=== PATIENT | male | born 1990 | race Caucasian/White ===

== ENCOUNTER 2019-02-07 05:23 | Inpatient (IN) | payer OTHER ==
[~2019-02-07] VITALS: Ht 165.1 cm; Wt 68.0 kg
[~2019-02-07 05:23] MED LIST: ALPRAZOLAM1 MG PO; AZATHIOPRINE50 MG PO; AZITHROMYCIN 2250 MG PO; BACTRIM DS TAB1 EACH PO; PREDNISONE 10 M10 MG PO; REMICADE 1100 MG/VIA; XANAX 0.5 MG0.5 M1 PO
[2019-02-07 05:29] VITALS: BP 139/62
[2019-02-07 05:47] LABS: ABSOLUTE LYMPHOCYTES 0.9 thou/uL (0.8-5.3); ABSOLUTE MONOCYTES 0.7 thou/uL (0.0-1.2); ABSOLUTE NEUTROPHILS 9.6 thou/uL (1.6-8.1); BASOPHILS 0.2 %; EOSINOPHILS 0.3 %; HEMATOCRIT 31.3 % (42.0-52.0); HEMOGLOBIN 9.5 gm/dL (14.0-18.0); MCH 19.6 pg (26.0-34.0); MCHC 30.3 g/dL (28.0-37.0); MCV 64.8 fL (80.0-100.0); MONOCYTES 6.6 %; NUCLEATED RBCS 0 /100WBC; PLATELET COUNT* 330 thou/uL (150-400); POLYS 84.9 %; RBC 4.83 mil/uL (4.50-6.00); RDW-CV 19.2 % (10.5-14.5); WBC 11.3 thou/uL (4.0-11.0)
[2019-02-07 05:54] LABS: CALCIUM 9.5 mg/dL (8.5-10.1); CREATININE 0.9 mg/dL (0.6-1.3); POTASSIUM 3.6 mmol/L (3.5-5.1)
[2019-02-07 05:59] LABS: ALBUMIN 2.8 g/dL (3.4-5.0); TOTAL BILIRUBIN 0.3 mg/dL (<0.1-1.0); TOTAL PROTEIN 7.2 g/dL (6.4-8.2)
[2019-02-07 09:32] LABS: ANISOCYTOSIS 1+; OVALOCYTES 1+; PLATELET ESTIMATE ADEQUATE
[2019-02-07 09:33] LABS: TEARDROPS Occasional
[2019-02-07 09:34] LABS: HYPOCHROMASIA 1+; MICROCYTES 2+
[2019-02-07 12:25] VITALS: BP 113/78
[2019-02-07 13:31] VITALS: BP 103/53
--- NOTE | 2019-02-07 14:13 | NUR ---
REVIEWED NURSING STUDENTS CHARTING AND AGREE.
[2019-02-07 16:00] VITALS: BP 116/63
--- NOTE | 2019-02-07 17:15 | NUR ---
PT A&Ox4. VITALS STABLE. PAIN PARTIALLY CONTROLLED WITH MORPHINE. DENIED N/V. IV PATENT. UP AD KADY. GI, ID AND SURGERY CONSULTED. CALL LIGHT WITHIN REACH. WILL CONTINUE TO MONITOR.
[2019-02-07 20:30] VITALS: BP 109/64
--- NOTE | 2019-02-08 07:33 | NUR ---
PATIENT HAS SLEPT OFF AND ON DURING THE NIGHT. VSS ON RA. PAIN MEDICATION GIVEN ORDERED AND CHARTED. NAUSEA MEDICATION GIVEN FOR C/O NAUSEA AND VOMITING. PATIENT HAD SOME NAUSEA FROM PAIN MEDICATION. GRAVITY DRAIN BAG IN PLACE WITH SMALL AMOUNT OF DRAINAGE IN BAG. IV IN RIGHT AC-NS @ 100ML/HR. IV ABT'S GIVEN WITHOUT ANY ADVERSE SIDE EFFECTS NOTED. PATIENT INSTRUCTED TO USE CALL LIGHT WHEN NEEDING ASSISTANCE. HOURLY ROUNDS MADE. WILL CONTINUE WITH PLAN OF CARE AND NURSING TO MONITOR.
[2019-02-08 07:41] VITALS: BP 109/69
--- NOTE | 2019-02-08 10:06 | NUR ---
REVIEWED ADJUNCT INSTRUCTOR CHARTING AND AGREE.
--- NOTE | 2019-02-08 10:33 | NUR ---
MET WITH PT TO DISCUSS HOME SITUATION/DC PLANNING. PT LIVES WITH ROOMMATE. IS INDEPENDENT. PARENTS ARE SUPPORTIVE. PT USES NO EQUIPMENT. HE IS UNINSURED BUT STATES HAS A PENDING MEDICAID EMILIANO. GAVE COMMUNITY RESOURCES AND DISCUSSED. WILL FOLLOW
--- NOTE | 2019-02-08 12:55 | NUR ---
PT HAVING SEVERE PAIN. DR AGUILERA NOTIFIED, T.O. TO DC NORCO 5/325, ADD NORCO 7.5/325 OK TO GIVE DOSE NOW.
[2019-02-08 15:11] LABS: URINE BILIRUBIN NEGATIVE (Negative); URINE BLOOD NEGATIVE (Negative); URINE CLARITY CLEAR; URINE COLOR YELLOW; URINE GLUCOSE-RANDOM NEGATIVE (Negative); URINE KETONES NEGATIVE (Negative); URINE LEUKOCYTES-REFLEX NEGATIVE (Negative); URINE NITRITE-REFLEX NEGATIVE (Negative); URINE PROTEIN NEGATIVE (Negative); URINE UROBILINOGEN 0.2 E.U./dl (0.2-1.0)
--- NOTE | 2019-02-08 17:44 | NUR ---
PT A&Ox4. VITALS STABLE. DRAIN AND IV PATENT. NAUSEA CONTROLLED WITH ZOFRAN. PAIN PARTIALLY CONTROLLED WITH NORCO. UP AD KADY. NPO. CALL LIGHT WITHIN REACH. WILL CONTINUE TO MONITOR.
[2019-02-08 19:50] VITALS: BP 108/63
[2019-02-09 03:32] LABS: HEMATOCRIT 30.3 % (42.0-52.0); HEMOGLOBIN 9.2 gm/dL (14.0-18.0); MCH 19.5 pg (26.0-34.0); MCHC 30.2 g/dL (28.0-37.0); MCV 64.5 fL (80.0-100.0); NUCLEATED RBCS 0 /100WBC; PLATELET COUNT* 342 thou/uL (150-400); RDW-CV 18.2 % (10.5-14.5); WBC 8.3 thou/uL (4.0-11.0)
[2019-02-09 03:40] LABS: CALCIUM 9.3 mg/dL (8.5-10.1); CREATININE 0.9 mg/dL (0.6-1.3); MAGNESIUM 2.1 mg/dL (1.8-2.4); POTASSIUM 4.1 mmol/L (3.5-5.1)
--- NOTE | 2019-02-09 05:16 | NUR ---
PATIENT HAS REMAINED ALERT AND ORIENTED X 4 THROUGHOUT THE SHIFT AND RESTING QUIETLY ON HOURLY ROUNDS. 2 OR 3 SHORT NAPS FOR REST TONIGHT. CONTINUES TO HAVE ABDOMINAL PAIN RATING 7-8/10 PRIOR TO ADMINISTRATIN OF ORAL PAIN MEDS. BEST RATING IMPROVED TO 6/10. RIGHT LQ ABDOMINAL DRAIN INTACT TO GRAVITY DRAINAGE BAG. YELLOWISH-BROWN OPAQUE RETURN. VITAL SIGNS STABLE. FLUIDS AND ANTIBIOTICS PER ORDER. PATIENT MAKING EFFORTS TO WORK WITH CURRENT ORDERS FOR PAIN MANAGEMENT BUT FRUSTRATED. CONTINUE TO MONITOR.
[2019-02-09 05:43] LABS: ABSOLUTE LYMPHOCYTES 0.9 thou/uL (0.8-5.3); ABSOLUTE MONOCYTES 0.3 thou/uL (0.0-1.2); ABSOLUTE NEUTROPHILS 7.1 thou/uL (1.6-8.1); HYPOCHROMASIA 2+; OVALOCYTES 1+; PLATELET ESTIMATE ADEQUATE
[2019-02-09 05:44] LABS: ANISOCYTOSIS 2+; MICROCYTES 2+; POIKILOCYTOSIS 1+; POLYCHROMASIA 1+
[2019-02-09 07:40] VITALS: BP 112/62
--- NOTE | 2019-02-09 17:01 | NUR ---
ASSUMED CARE OF PATIENT AT APPROX 0730. ALERT AND ORIENTED X4. ASSESSMENT COMPLETED AND CHARTED. VSS ON ROOM AIR. PAIN MANAGED WITH ORAL PAIN MEDICATIONS, PATIENT CALLS OUT EVERY 2 HOURS FOR MEDS. ANTIBIOTICS AND IRON INFUSED IV, KVO NS RUNNING AT THIS TIME. NO OTHER COMPLAINTS THIS SHIFT. RLQ GRAVITY DRAIN IN PLACE WITH MINIMAL DRAINAGE. PATIENT UP AD KADY. HOURLY ROUNDS COMPLETED. CALL LIGHT WITHIN REACH. WILL CONTINUE TO MONITOR.
[2019-02-09 17:05] VITALS: BP 126/65
[2019-02-09 19:45] VITALS: BP 112/60
[2019-02-10 02:06] LABS: GLYCOHEMOGLOBIN (HGB A1C) 5.3 % (4.8-5.6)
--- NOTE | 2019-02-10 05:09 | NUR ---
PT AWAKE MOST OF SHIFT. ASSESSMENT DOCUMENTED. MEDS GIVEN PER E-MAR. IV PATENT. PAIN MEDS GIVEN WITH SOME RELIEF. PT EXPRESSES FRUSTRATION ON POOR PAIN CONTROL. PT REPORTED SOME NAUSEA BUT REFUSED NAUSEA MEDS. PT ATE SEVERAL JELLO THIS SHIFT. IV PATENT, WITH FLUIDS TKO. WILL CONTINUE WITH PLAN OF CARE.
[2019-02-10 05:21] LABS: ABSOLUTE LYMPHOCYTES 0.9 thou/uL (0.8-5.3); ABSOLUTE MONOCYTES 0.5 thou/uL (0.0-1.2); ABSOLUTE NEUTROPHILS 7.9 thou/uL (1.6-8.1); BASOPHILS 0.1 %; HEMATOCRIT 29.3 % (42.0-52.0); LYMPHOCYTES 10.1 %; MCHC 30.8 g/dL (28.0-37.0); MPV 7.7 fl. (7.2-11.1); NUCLEATED RBCS 0 /100WBC; PLATELET COUNT* 403 thou/uL (150-400); POLYS 84.8 %; RDW-CV 18.1 % (10.5-14.5); WBC 9.4 thou/uL (4.0-11.0)
[2019-02-10 05:47] LABS: CALCIUM 9.2 mg/dL (8.5-10.1); POTASSIUM 3.7 mmol/L (3.5-5.1)
[2019-02-10 05:59] LABS: PLATELET ESTIMATE INCREASED
[2019-02-10 06:00] LABS: HYPOCHROMASIA 2+; MICROCYTES 2+; OVALOCYTES 1+
[2019-02-10 06:01] LABS: ANISOCYTOSIS 2+; POIKILOCYTOSIS 1+
[2019-02-10 07:40] VITALS: BP 166/66
--- NOTE | 2019-02-10 09:52 | NUR ---
PER NELLIE/JORGE, PT DOESN'T HAVE A PENDING EMILIANO WITH MEDICAID. SHE PLANS TO VISIT WITH PT IN HOSPITAL TODAY TO INITIATE.
[2019-02-10 16:00] VITALS: BP 142/46
--- NOTE | 2019-02-10 18:57 | NUR ---
ASSUMED CARE OF PATIENT AT APPROX 0730. ALERT AND ORIENTED X4. ASSESSMENT COMPLETED AND CHARTED. VSS ON ROOM AIR. SOME COMPLAINTS OF NAUSEA BUT REQUESTED NO MEDICATION. PAIN MANAGED WITH ORAL MEDICATION, NITO UPSET THAT CHANGES WERE MADE TO PAIN MEDS, STATED THAT HIS PAIN IS NOT BEING CONTROLLED. DR AGUILERA CHANGED OXY IR TO EVERY 3 HOURS. IRON INFUSED ORDERED. PATIENT HAD NO OTHER COMPLAINTS THIS SHIFT. UP AD KADY. CALL LIGHT WITHIN REACH. HOURLY ROUNDS COMPLETED. WILL CONTINUE TO MONITOR.
[2019-02-10 19:45] VITALS: BP 118/61
[2019-02-11 04:31] LABS: ABSOLUTE LYMPHOCYTES 0.9 thou/uL (0.8-5.3); ABSOLUTE MONOCYTES 0.5 thou/uL (0.0-1.2); ABSOLUTE NEUTROPHILS 9.9 thou/uL (1.6-8.1); BASOPHILS 0.1 %; HEMATOCRIT 30.6 % (42.0-52.0); HEMOGLOBIN 9.2 gm/dL (14.0-18.0); LYMPHOCYTES 7.9 %; MCH 19.5 pg (26.0-34.0); MCHC 30.1 g/dL (28.0-37.0); MCV 64.9 fL (80.0-100.0); MONOCYTES 4.1 %; NUCLEATED RBCS 0 /100WBC; PLATELET COUNT* 413 thou/uL (150-400); POLYS 87.9 %; RBC 4.72 mil/uL (4.50-6.00); RDW-CV 18.7 % (10.5-14.5); WBC 11.2 thou/uL (4.0-11.0)
[2019-02-11 04:42] LABS: CALCIUM 9.1 mg/dL (8.5-10.1); POTASSIUM 4.2 mmol/L (3.5-5.1)
--- NOTE | 2019-02-11 05:42 | NUR ---
PT ALERT AND ORIENTED. VITALS STABLE RA. MEDS GIVEN ORDERED. PAIN MANAGED WITH SCHEDULED TRAMADOL AND PRN OXY IR. NO NAUSEA OR VOMITING. RLQ DRAINAGE/DRESSING INTACT. WILL CONTINUE TO MONITOR.
--- NOTE | 2019-02-11 10:57 | NUR ---
PER NELLIE/FUAD, PT DOESN'T QUALIFY FOR MEDICAID
--- NOTE | 2019-02-11 15:37 | NUR ---
ASSESSMENT COMPLETE. PT ALERT AND ORIENTED X4. PT GIVEN PRN PAIN MEDICATION NEEDED. DRAIN FLUSHED THIS AFTERNOON, DRESSING INTACT. PT IS ON PO ABX. DR PINEDA FOLLOWING. PT TOLERATING SOFT DIET. PT DENIES N/V. PT IS ON ROOM AIR, VSS. PT IS ON ROOM AIR, VSS. PT IS UP AD KADY. SEE ASSESSMENT AND VITALS FOR OTHER DETAILS, CALL LIGHT WITHIN REACH. WILL CONTINUE PLAN OF CARE
[2019-02-11 15:51] VITALS: BP 123/73
[2019-02-11 20:15] VITALS: BP 133/75
--- NOTE | 2019-02-11 20:16 | CON ---
[address] [address] CONSULTATION Name: PIPPA HEREDIA Room: [address] IN M.R.#: [id number] Admission: 02/07/19 Attend Phys: aKhlil Galindo MD Discharge: Date of : 86 Report #: [id number] THIS REPORT FOR: //name// CC: Kahlil Galindo [facility] physician/PCP DATE OF SERVICE: 02/07/2019 HISTORY OF PRESENT ILLNESS: This is a pleasant 28-year-old gentleman with fistulas and ileocolonic Crohn's disease, who is presenting for evaluation. The patient was previously seen about 2 weeks back with similar set of symptoms. The patient was initially diagnosed with Crohn's disease at the age of 12. He has been followed by Dr. Hidalgo at [facility]. The patient was initially placed on Remicade and for unknown reasons was subsequently switched to Humira, which he took for several years. The patient could no longer afford the Humira and ceased all medications about 6 to 6-1/2 years back. It appears he may have been taking some homeopathic medications at the same time. The patient was hospitalized about 6 months back and underwent a colonoscopy at that time. The colonoscopy revealed severe disease and stricture within the sigmoid colon and inability to pass the scope beyond the sigmoid. The patient was then placed on Remicade and he got his first dose of Remicade on 10/13/2018. It appears that the patient did not receive any treatment after that. The patient was admitted about 2 weeks back with worsening abdominal pain, fevers. At that time, he was noted to have pelvic abscesses as well as an enterocutaneous fistula. The patient was discharged on antibiotics about 7 days back and 2 days following discharge, he began developing worsening fevers, chills and rigors as well as profuse sweating. The patient now presented to the ER with worsening abdominal pain, pelvic pain and worsening fevers. PAST MEDICAL HISTORY: As mentioned above. His past medical history is significant for Crohn's disease diagnosed at age 12. PAST SURGICAL HISTORY: The patient had right ankle fracture and lumbar fusion surgery. SOCIAL HISTORY: Denies smoking, alcohol or recreational drug use. FAMILY HISTORY: His uncle had Crohn's disease, but there is no history of other first-degree relatives with inflammatory bowel disease and no history of colorectal cancer. REVIEW OF SYSTEMS: A comprehensive 10-point review of systems is negative except for what was mentioned in the HPI. PHYSICAL EXAMINATION: VITAL SIGNS: Temperature 39, pulse rate 129, respirations 18, [place] [address] CONSULTATION Name: YANPIPPA Room: [address]#: [id number] Admission: 02/07/19 Attend Phys: Kahlil Galindo MD Discharge: Date of : 86 Report #: [id number] 139/62, pulse ox 99% on room air. GENERAL: The patient is alert, awake, oriented x 3. HEENT: Pupils are equal, round, reactive to light and accommodation. Mucous membranes are moist. There is no congestion. LUNGS: Clear to auscultation bilaterally. CARDIOVASCULAR: Rate and rhythm regular, S1, S2 present. ABDOMEN: Soft. There is exquisite tenderness in the right lower quadrant epigastric region. No rigidity or guarding. EXTREMITIES: Warm and well perfused. There is no edema. LABORATORY DATA: Hemoglobin 9.5, hematocrit 31.3, WBC count 11.3, platelet count 330. Sodium 140, potassium 3.6, chloride 100, bicarbonate 31, BUN 7, creatinine 0.9, total bilirubin 0.3, AST 12, ALT 42, alkaline phosphatase 145. CT abdomen and pelvis with IV contrast; moderate fluid within the abscess cavity, previous abscess injection revealed small fistulous tract to the adjacent colon and fluid collections in the anterior pelvis showed probably small bowel loops. ASSESSMENT AND PLAN: This pleasant 28-year-old gentleman with history of severe ileocolonic Crohn's disease with abscess and fistula formation. The patient currently is on prednisone 20 mg p.o. I would switch his antibiotics to Cipro and Flagyl that can be given orally outpatient. I would recommend getting a fistulogram to assess the patency of the fistula. Surgery consult placed to assist with management. The patient will need to be on outpatient therapy with biologics. His lack of insurance appears to be a big barrier. Further recommendations will be based on the results of the imaging. <ELECTRONICALLY SIGNED> By: Gagan Jeffery MD 02/11/192015 [id number] Jeffery MD /nt
[2019-02-12 04:14] LABS: ABSOLUTE LYMPHOCYTES 0.8 thou/uL (0.8-5.3); ABSOLUTE MONOCYTES 0.4 thou/uL (0.0-1.2); ABSOLUTE NEUTROPHILS 10.4 thou/uL (1.6-8.1); BASOPHILS 0.1 %; HEMATOCRIT 31.3 % (42.0-52.0); HEMOGLOBIN 9.3 gm/dL (14.0-18.0); LYMPHOCYTES 6.5 %; MCH 19.8 pg (26.0-34.0); MCHC 29.7 g/dL (28.0-37.0); MCV 66.5 fL (80.0-100.0); MONOCYTES 3.3 %; MPV 7.4 fl. (7.2-11.1); NUCLEATED RBCS 0 /100WBC; PLATELET COUNT* 454 thou/uL (150-400); POLYS 90.1 %; RDW-CV 18.6 % (10.5-14.5); WBC 11.6 thou/uL (4.0-11.0)
[2019-02-12 04:18] LABS: CALCIUM 8.7 mg/dL (8.5-10.1); CREATININE 0.9 mg/dL (0.6-1.3); POTASSIUM 4.7 mmol/L (3.5-5.1)
--- NOTE | 2019-02-12 05:22 | NUR ---
PT ALERT AND ORIENTED. VITALS STABLE RA. MEDS GIVEN ORDERED. PAIN MANAGED WITH TRAMADOL AND OXY IR. DRAINGE DRESSING C/D/I. PROMETHAZINE, SLEEPING PILLS GIVEN PER PT REQUEST. HOURLY ROUNDING COMPLETED. WILL CONTINUE TO MONITOR.
[2019-02-12 08:04] VITALS: BP 114/66
--- NOTE | 2019-02-12 11:05 | NUR ---
REVIEWED STUDENT CHARTING AND AGREE.
[2019-02-12] MEDS ORDERED: CIPRO500 MG PO (11:49)
[2019-02-12] MEDS ORDERED: FLAGYL500 M1 PO (11:50)
[2019-02-12] MEDS ORDERED: OXYCODONE HCL15 MG PO (11:51)
[2019-02-12] MEDS ORDERED: TRAMADOL 50 MG50 MG PO (11:51)
[2019-02-12] MEDS ORDERED: AMITRIPTYLINE H25 M2 PO (11:52)
[2019-02-12] MEDS ORDERED: TYLENOL EXTRA500 MG PO (11:52)
[2019-02-12] MEDS ORDERED: THERA M PLUS T1 EAC2 PO (11:52)
[2019-02-12 12:06] VITALS: BP 114/66
[2019-02-12] MEDS ORDERED: CEFUROXIME250 MG PO (12:18)
[2019-02-12] MEDS ORDERED: OXYCONTIN15 MG PO (12:19)
--- NOTE | 2019-02-12 13:39 | NUR ---
PER NELLIE/JORGE, SHE SAW PT.02/11 AND STARTED MEDICAID APPLICATION AND SS DISABLITY APPLICATION WITH PT.
--- NOTE | 2019-02-12 13:53 | NUR ---
PT DISCHARGED TO HOME AND LEFT UNIT AT 1353 WITH NURSING STAFF. IV OUT. PT STABLE UPON DISCHARGE. DRAIN PATENT. PAPER SCRIPTS AND CARE NOTES GIVEN.
== END 2019-02-12 13:52 | disposition home or self-care (01) | DRG 871 ==
LOC: M.ERS 05:23 → M.ORTHSURG 07:19 → M.TBA-ER 07:19 → M.ORTHSURG 12:27
PROVIDERS: Emergency Medicine; Family Medicine; ADMIT Internal Medicine
DX: A41.9 Sepsis, unspecified organism (principal); K65.1 Peritoneal abscess; K50.014 Crohn's disease of small intestine with abscess; K50.013 Crohn's disease of small intestine with fistula; G89.4 Chronic pain syndrome; D63.8 Anemia in other chronic diseases classified elsewhere; D50.9 Iron deficiency anemia, unspecified; Z98.1 Arthrodesis status; Z79.899 Other long term (current) drug therapy

== ENCOUNTER 2019-02-17 01:40 | Inpatient (IN) | payer OTHER ==
[~2019-02-17] VITALS: Ht 165.1 cm; Wt 64.4 kg
--- NOTE | ~2019-02-17 | OP ---
[facility] [address] [place] [address] OPERATIVE REPORT Name: PIPPA HEREDIA Room: [address] IN M.R.#: [id number] Admission: 02/17/19 Attend Phys: Ned Pulido Discharge: Date of : 86 Report #: [id number] THIS REPORT FOR: //name// CC: [facility] physician/PCP Manuel Mandujano DATE OF SERVICE: 02/17/2019 PREOPERATIVE DIAGNOSES: Crohn's disease with enterocutaneous fistula. POSTOPERATIVE DIAGNOSES: 1. Crohn's disease. 2. Enterocutaneous fistula. 3. Enteroenteric fistula. 4. Pelvic abscess. PROCEDURE: Exploratory laparotomy with small bowel resection, drainage of peritonitis, ileostomy. SURGEON: Milan Santiago MD ANESTHESIA: General. ESTIMATED BLOOD LOSS: 200 mL. SPECIMEN: Small bowel. DRAIN: 15-Rwandan round. DESCRIPTION OF PROCEDURE: After informed consent was obtained, the patient was brought to the operating room and placed supine. SCDs were placed and working preoperative antibiotics were administered, general anesthesia was induced. The abdomen was prepped and draped in usual sterile fashion. Rebollar catheter was placed prior to prepping. A midline incision was made from the pubis up to the umbilicus. The fascia was incised. A self-retaining retractor was placed. I first began by examining the abdomen. He had a severe amount of inflammation throughout the entire abdomen. There was small bowel stuck down into the pelvis. I was able to identify the ligament of Treitz. I then ran the bowel distally. The proximal bowel was fairly healthy. However, approximately 130 cm from the ligament of Treitz, the small bowel was matted up into a ball. It was fistulizing with each other. It was also matted down into the pelvis. I was [address] [address] OPERATIVE REPORT Name: PIPPA HEREDIA Room: [address] IN [facility]#: [id number] Admission: 02/17/19 Attend Phys: Ned Pulido Discharge: Date of : 86 Report #: [id number] able to free up this small bowel, but it was full of small pockets of pus. The bowel appeared very unhealthy and I did not think it was viable. Therefore, the bowel was stapled at a healthy site. I then ligated the mesentery using the LigaSure device. Ligation of the mesentery was taken down into the small bowel, which was in the pelvis. The small bowel was stapled off. Approximately, a 100 cm of small bowel was removed. There was an abscess in the pelvis. This was suctioned out. I did place a 19-Rwandan round drain into the pelvis and brought it out through the right lower quadrant. The abdomen was copiously irrigated with normal saline. An incision was made in the right lower quadrant to bring out the ileostomy. The fascia was then closed with a 0 PDS in running fashion. Skin was closed with annmarie. Ostomy appliance was placed. Sterile dressings were applied. COMPLICATIONS: None. DISPOSITION: The patient was taken to recovery in satisfactory condition. By: [id number] Santiago MD /nt
[~2019-02-17 01:40] MED LIST changes: +AMITRIPTYLINE H25 M2 PO; +CEFUROXIME250 MG PO; +CIPRO500 MG PO; +FLAGYL500 M1 PO; +OXYCODONE HCL15 MG PO; +OXYCONTIN15 MG PO; +THERA M PLUS T1 EAC2 PO; +TRAMADOL 50 MG50 MG PO; +TYLENOL EXTRA500 MG PO
[2019-02-17 01:48] VITALS: BP 122/83
[2019-02-17 02:22] LABS: ABSOLUTE EOSINOPHILS 0.1 thou/uL (0.0-0.7); ABSOLUTE LYMPHOCYTES 1.7 thou/uL (0.8-5.3); ABSOLUTE MONOCYTES 0.8 thou/uL (0.0-1.2); ABSOLUTE NEUTROPHILS 9.1 thou/uL (1.6-8.1); BASOPHILS 0.4 %; HEMATOCRIT 35.2 % (42.0-52.0); HEMOGLOBIN 10.7 gm/dL (14.0-18.0); LYMPHOCYTES 14.5 %; MCH 20.8 pg (26.0-34.0); MCHC 30.4 g/dL (28.0-37.0); MCV 68.5 fL (80.0-100.0); MONOCYTES 6.4 %; MPV 7.2 fl. (7.2-11.1); NUCLEATED RBCS 0 /100WBC; PLATELET COUNT* 658 thou/uL (150-400); POLYS 77.7 %; RBC 5.14 mil/uL (4.50-6.00); RDW-CV 19.9 % (10.5-14.5); WBC 11.7 thou/uL (4.0-11.0)
[2019-02-17 02:30] LABS: CREATININE 0.9 mg/dL (0.6-1.3)
[2019-02-17 02:34] LABS: TOTAL BILIRUBIN 0.2 mg/dL (<0.1-1.0); TOTAL PROTEIN 7.3 g/dL (6.4-8.2)
[2019-02-17 04:58] LABS: ANISOCYTOSIS 1+; HYPOCHROMASIA 1+; MICROCYTES 3+; POLYCHROMASIA 2+
[2019-02-17 04:59] LABS: PLATELET ESTIMATE INCREASED
[2019-02-17 05:01] LABS: OVALOCYTES Occasional
[2019-02-17 05:19] LABS: URINE BILIRUBIN NEGATIVE (Negative); URINE BLOOD NEGATIVE (Negative); URINE CLARITY CLEAR; URINE COLOR YELLOW; URINE GLUCOSE-RANDOM NEGATIVE (Negative); URINE KETONES NEGATIVE (Negative); URINE LEUKOCYTES-REFLEX NEGATIVE (Negative); URINE NITRITE-REFLEX NEGATIVE (Negative); URINE PROTEIN NEGATIVE (Negative); URINE SPECIFIC GRAVITY <= 1.005 (1.005-1.030); URINE UROBILINOGEN 0.2 E.U./dl (0.2-1.0)
[2019-02-17 06:08] VITALS: BP 112/69
[2019-02-17 08:00] VITALS: BP 125/75
[2019-02-17 10:46] VITALS: BP 125/75
[2019-02-17 15:00] VITALS: BP 128/72
--- NOTE | 2019-02-17 15:39 | NUR ---
PT BACK FROM PACU. NG TUBE,ARTEAGA CATH AND TE DRAIN IN PLACE-DRAINING WELL. PT REPORTS A LOT OF PAIN UNRELIEVED BY POSTOP MEDS GIVEN. DRESSING IN PLACE TO ABD,ILEOSTOMY TO RUQ IN PLACE,STOMA PINK. MOTHER AT BS
--- NOTE | 2019-02-17 16:04 | NUR ---
PT REPORTS PAIN UNCONTROLLED WITH ORDERED MEDICATIONS. DR WILLETT NOTIFIED
--- NOTE | 2019-02-17 16:15 | NUR ---
NOTIFIED ILANA SALES, OSTOMY NURSE OF PT.'S NEW ILEOSTOMY AND SURGERY TODAY. SHE SAID SHE WILL COME TO SEE HIM THIS AFTERNOON.
--- NOTE | 2019-02-17 17:04 | NUR ---
PT TO OR THIS AFTERNOON. PAIN POORLY CONTROLLED. CARDIOVASCULAR DISEASE SPECIALIST PUMP STARTED THIS PM. ARTEAGA CATH DRAINING CLEAR YELLOW URINE. MOTHER AT BS.
--- NOTE | 2019-02-17 17:20 | NUR ---
OSTOMY NURSE- PATIENT ADMITTED TODAY FOLLOWING SURGERY FOR EXPLORATORY LAPAROTOMY WITH SMALL BOWEL RESECTION, DRAINAGE OF PERITONITIS AND ILEOSTOMY PER DR. WILLETT. PATIENT CURRENTLY HAVING DIFFICULTIES WITH PAIN CONTROL, SO ASSESSED VERY BRIEFLY, INTRODUCED SELF, LEFT SUPPLIES & TEACHING PACKET AT BEDSIDE AND OBTAINED PERMISSION TO ENROLL HIM IN [employer] STARTS PROGRAM FOR PRODUCT SAMPLES - FAXED TO [employer]. ABDOMEN CURRENTLY NON-DISTENDED AND SOFT WITH MIDLINE DRESSING INTACT AND ILEOSTOMY POUCH INTACT TO RIGHT ABDOMEN, NO STOOL. STOMA APPEARS APPROXIMATELY 1 1/4 INCHES, BEEFY RED, MOIST AND MODERATELY EDEMATOUS. TE DRAIN IN PLACE RLQ. WILL PLAN TO FOLLOW-UP WITH PATIENT ON FRIDAY (02/19) OR FRIDAY (02/20).
[2019-02-17 20:21] VITALS: BP 122/77
--- NOTE | 2019-02-17 23:50 | NUR ---
PATIENT WAS NOT GETTING MUCH RELIEF FROM COURTESY CAR DRIVER PUMP AT ORDERED SETTINGS. I HAVE GIVEN HIM IV TORODOL AND HIS PAIN STILL AT 10/10. DR WILLETT RETURNED CALL AFTER 2 PAGES TO ANSWERING SERVICE. HE INSTRUCTED TO ALLOW .2 OF HYDROMORPHONE BE ADDED TO [employer]Y CAR DRIVER SETTING PER HOUR FOR BREAKTHROUGH PAIN. NURSE AIDAN ACCOMPANIED ME TO PATIENT ROOM TO VERIFY SETTINGS WERE PUT IN CORRECT. I FAXED A PAPER ORDER SPECIFYING THE TELEPHONE INSTRUCTIONS FROM DR WILLETT TO THE PHARMACY AROUND 2320 AND PUT IN CHART.
[2019-02-18] VITALS: BP 114/65
[2019-02-18 04:15] VITALS: BP 115/70
[2019-02-18 04:22] LABS: HEMATOCRIT 30.8 % (42.0-52.0); HEMOGLOBIN 9.4 gm/dL (14.0-18.0); MCH 20.6 pg (26.0-34.0); MCHC 30.5 g/dL (28.0-37.0); MCV 67.3 fL (80.0-100.0); MPV 6.9 fl. (7.2-11.1); RBC 4.58 mil/uL (4.50-6.00); RDW-CV 19.4 % (10.5-14.5); WBC 17.3 thou/uL (4.0-11.0)
[2019-02-18 04:34] LABS: CALCIUM 8.4 mg/dL (8.5-10.1); CREATININE 0.8 mg/dL (0.6-1.3); MAGNESIUM 1.7 mg/dL (1.8-2.4); POTASSIUM 4.3 mmol/L (3.5-5.1)
--- NOTE | 2019-02-18 05:47 | NUR ---
PATIENT REPORTED PAIN ALL THROUGH SHIFT. SEE PRIOR NOTE ABOUT CONTACTING DR WILLETT FOR AN INCREASE IN DILAUDID LATH TIER ADMINISTRATION. THIS PATIENT HAS BEEN RECEIVING LATH TIER DILAUDID AND CANNOT TAKE ANY PO MEDS DUE TO NG TUBE. I GAVE HIM SCHEDULED TORODOL AND A DOSE OF DIPHENHYDRAMINE. HE REPORTED PAIN AT A 7/10 WITH USE OF LATH TIER. DR WILLETT MADE IT CLEAR THERE WOULD BE NO MORE PAIN MEDS ORDERED FOR PATIENT. HE REMAINED IN BED ALL DURING THE SHIFT. ARTEAGA AND TE DRAIN OUTPUT GOOD AND VERY LITTLE OUTPUT ON NG TUBE. PAIN CONTROL IS AN ISSUE FOR THIS PATIENT HE HAS BEEN DEALING WITH HIS CONDITION SINCE LAST JUNE.
[2019-02-18 11:30] VITALS: BP 93/46
--- NOTE | 2019-02-18 12:58 | NUR ---
INITIAL ASSESSMENT: Pt evaluated for d/c planning needs. Reviewed chart. Pt was hospitalized earlier this month. Pt lives with roommate and was independent with ADL's prior to admission to the hospital. His mother is supportive and involved. Pt has applied for [place] and was given safety net clinic information on previous admission. Will remain available to assist as needed.
[2019-02-18 16:00] VITALS: BP 103/52
--- NOTE | 2019-02-18 18:38 | NUR ---
PATIENT PLEASANT AND COOPERATIVE THRU SHIFT. PATIENT STATES HE IS OK WITH ILEOSTOMY. STATES THAT HE DOES NOT FEEL THAT HE NEEDS COUNSELING FOR PERSONAL APPEARANCE CHANGE OR DEPRESSION. PATIENT ENC TO TALK TO STAFF IF HE FEELS HE IS DEPRESSED. FAMILY MEMBERS IN TO SEE THRU SHIFT. ARTEAGA CATH DISCONTINUED THIS AM, 300ML YELLOW URINE DRAINED FROM BAG, 9ML NS WITHDRAWN FROM BULB, PATIENT HARPAL WELL. IV CATH SITE NOTED WNL, FLUIDS AND DILAUDID FISHING LINE WINDING MACHINE OPERATOR INFUSING THRU SHIFT. PATIENT STATES GEN ABD PAIN CONSISTENTLY 02/03 THRU SHIFT. TE DRAIN TO ABD NOTED INTACT W/ SEROSANG DRNG. SCDs ON THRU SHIFT. PATIENT STATES HE DOES NOT FEEL HE CAN BE GETTING UP TODAY, FEELS HIS PAIN IS NOT CONTROLLED. PATIENT ENC TO REPOSITION OFF HIS BACK THRU SHIFT. O2 RA 98-100%, NATHAN POX ON.
[2019-02-18 19:45] VITALS: BP 102/52
[2019-02-19] VITALS: BP 102/51
--- NOTE | 2019-02-19 05:28 | NUR ---
PT DOZED ON AND OFF THIS SHIFT, AWAKE A LOT WATCHING TV AND ON PHONE. NGT TO LIS DRAINING [place] BROWNISH GREEN DRAINAGE. CONT PULSE OX, SATS MID 90'S ON ROOM AIR. RFA IVF INFUSING PER PUMP, ABX GIVEN ORDERED, AND DILAUDID MANAGER STORE PUMP INFUSING. ILEOSTOMY DRAINING GREEN BROWN LIQUID. TE DRAIN WITH SEROSANG DRNG. SCDS ON. USING URINAL TO VOID. NPO EXCEPT MEDS WITH SIPS. MEDICATED SPRAY FOR SORE THROAT DUE TO NGT PRN. NO LABS THIS MORNING. MID LINE ABD DRSG INTACT WITH SOME SHADOWING NOTED. AOX4, ABLE TO USE CALL LITE AND MAKE NEEDS KNOWN.
[2019-02-19 07:36] VITALS: BP 101/47
--- NOTE | 2019-02-19 11:20 | NUR ---
REVIEWED STUDENT NURSE CHARTING AND AGREE
[2019-02-19 16:40] VITALS: BP 108/57
--- NOTE | 2019-02-19 18:33 | NUR ---
PT A&Ox4. VITALS STABLE. IV PATENT. PAIN CONTROLLED WITH SIGNS AND DISPLAYS SALES REPRESENTATIVE PUMP. UP AD KADY. STOMA PINK. ILIOSTOMY INTACT. TOLERATING CLEAR LIQUIDS. NG TUBE PULLED OUT. CALL LIGHT WITHIN REACH. WILL CONTINUE TO MONITOR.
[2019-02-19 20:30] VITALS: BP 104/43
[2019-02-20] VITALS: BP 98/48
[2019-02-20 04:00] VITALS: BP 104/55
--- NOTE | 2019-02-20 05:56 | NUR ---
PT AWAKE MOST OF SHIFT. ASSESSMENT DOCUMENTED. MEDS GIVEN PER E-MAR. IV PATENT, FLUIDS RUNNING TPO. HAND MICA PLATE LAYER PAIN PUMP IN PLACE WITH SOME PAIN RELIEF. PT REFUSING SCHEDULED TYLENOL. PT ASKING FOR ICE-CREAM THIS SHIFT, PT EDUCATED THAT ICE-CREAM IS NOT A CLEAR LIQUID, PT STATING "THE OTHER PEOPLE LET ME HAVE IT". PT ATE MANY JELLOS THIS SHIFT. NO REPORTS OF NAUSEA THIS SHIFT. PT EMPTYING OWN ILLIOSTOMY AND TE DRAIN. MIDLINE INCISION C/D/I. WILL CONTINUE WITH PLAN OF CARE.
[2019-02-20 08:00] VITALS: BP 124/68
--- NOTE | 2019-02-20 11:54 | NUR ---
OSTOMY NURSE - PATIENT NOW 3 DAYS POST-OP FOLLOWING EXPLORATORY LAPAROTOMY, SMALL BOWEL RESECTION, DRAINAGE OF PERITONITIS AND ILEOSTOMY ON 02/17/[address] Thea WILLETT. PATIENT ALERT, ORIENTED, APPROPRIATE FOR TEACHING AT THIS TIME. ABDOMEN NON-DISTENDED, SOFT. ILEOSTOMY POUCH INTACT WITH MODERATE AMOUNT OF LOOSE LIGHT BROWN STOOL. STOMA 1 1/4 INCHES, SLIGHTLY BUDDED, PINK, MOIST, EDEMATOUS WITH MUCOCUTANEOUS INCISION WELL APPROXIMATED. PERISTOMAL SKIN INTACT. MIDLINE ABDOMINAL INCISION WELL APPROXIMATED WITH JENNIFER, WITH SMALL ELIDA OF AQUACEL AG REMOVED FROM SMALL AREAS LEFT OPEN ALONG INCISION, ONE MID-INCISION AND ONE AT LOWER END. LARGER ONE AT LOWER END APPROXIMATELY 0.5 X 0.5 X 0.8 CM, PINK AND MOIST. TE DRAIN RLQ COMPRESSED WITH SMALL AMOUNTS OF SEROSANGUINEOUS DRAINAGE. ADJACENT FORMER DRAIN SITES (PER PATIENT REPORT) WITH SOME YELLOW SLOUGH ON PINK BASE - 1.5 X 0.8 X 0.4 CM AND 1.6 X 1 X 1 CM. AREAS ALL CLEANSED WELL, APPLIED SILVERMED GEL, AND COVERED DRAIN SITES WITH FOAM BORDER DRESSING AND MIDLINE INCISION WITH [place] DRESSING. PATIENT REPORTS THAT HE HAS BEEN EMPTYING POUCH, AND INITIALLY REPORTED THAT HE "CHANGED POUCH", BUT UPON CLARIFYING, HE JUST SNAPPED POUCH OFF OF BARRIER AND SNAPPED ON NEW POUCH. ENTIRE POUCH CHANGE AT THIS TIME, INSTRUCTING PATIENT ON POUCH CHANGE AND SITE CARE. OPENING OFFSET TO AVOID MIDLINE INCISION AND TE DRAIN - PATTERN WITH SUPPLIES. BRIEFLY REVIEWED DIETARY MEASURES TO THICKEN STOOL, WHICH SHOULD IMPROVE WITH NEW ORDERS TO ADVANCE TO REGULAR DIET. HE REPORTS GOOD APPETITE, NO NAUSEA. HE IS OPTOMISTIC THAT HE WILL RECEIVE MEDICAID. NOTED SUPPLIERS THAT ACCEPT MEDICAID ON LIST, AND ADVISED THAT [employer] WILL CONTINUE TO ASSIST WITH SAMPLES NEEDED. HE WAS ENROLLED IN [employer] LAST WEEK, AND HAS CONTACT NUMBER. HE WAS TOLD THAT HE WILL HAVE ILEOSTOMY FOR A FEW MONTHS, AND HE FEELS COMFORTABLE WITH CARE - HAS MY CONTACT INFORMATION, IF QUESTIONS.
--- NOTE | 2019-02-20 18:09 | NUR ---
PATIENT ALERT AND ORIENTED X 4. VITAL SIGNS STABLE ON ROOM AIR. UP INDEPENDENTLY IN ROOM. IV PATENT WITH FLUIDS INFUSING. HEAD OF PRECISION TARGETING PUMP DISCONTINUED. PAIN BEING MANAGED WITH IV AND PO MEDICATION. DENIES NAUSEA. ILEOSTOMY INTACT. STOMA PINK. SPOKE TO SURGERY ABOUT OSTOMY OUTPUT. STATED TO DOCUMENT ALL OUTPUT. TOLERATING REGULAR DIET. HOURLY ROUNDS MAINTAINED THROUGHOUT THE SHIFT. CALL LIGHT WITHIN REACH. NURSING WILL CONTINUE TO MONITOR.
[2019-02-20 18:45] VITALS: BP 118/78
[2019-02-20 21:53] VITALS: BP 121/78
[2019-02-21 00:32] VITALS: BP 116/78
[2019-02-21 05:04] LABS: ALBUMIN 2.9 g/dL (3.4-5.0); CREATININE 0.9 mg/dL (0.6-1.3); POTASSIUM 3.6 mmol/L (3.5-5.1); TOTAL BILIRUBIN 0.1 mg/dL (<0.1-1.0); TOTAL PROTEIN 6.6 g/dL (6.4-8.2)
--- NOTE | 2019-02-21 05:18 | NUR ---
PATIENT HAD BEEN GIVEN TRAMADOL, HYDROCODONE AND MORPHINE FOR PAIN CONTROL THROUGHOUT SHIFT. HE STILL HAS NOT GOT OUT OF BED DUE TO PAIN. HE IS TOLERATING SOLID FOODS WELL WITHOUT NAUSEA. CONTINUED TO GET IV ABX. NO NEW WORSENING OF PAIN OR SYMPTOMS.
[2019-02-21 08:00] VITALS: BP 167/97
[2019-02-21 16:31] VITALS: BP 111/63
--- NOTE | 2019-02-21 18:05 | NUR ---
PATIENT ALERT AND ORIENTED X 4. VITAL SIGNS STABLE ON ROOM AIR. UP INDEPENDENTLY AND AMBULATING IN ROOM. IV PATENT WITH FLUIDS INFUSING. PAIN BEING MANAGED WITH PO AND IV MEDICATION. DENIES NAUSEA. ILEOSTOMY INTACT WITH LOOSE BROWN STOOL OUTPUT. STOMA PINK. TOLERATING REGULAR DIET. HOURLY ROUNDS MAINTAINED THROUGHOUT THE SHIFT. CALL LIGHT WITHIN REACH. NURSING WILL CONTINUE TO MONITOR.
[2019-02-21 21:17] VITALS: BP 114/72
--- NOTE | 2019-02-22 05:56 | NUR ---
PATIENT WAS RESTING MOST OF SHIFT. WAS GIVEN TRAMADOL, MORPHINE AND HYDROCODONE FOR PAIN CONTROL. ABX ADMINISTERED ALL SHIFT, NO NEW OR WORSENING CONDITIONS.
[2019-02-22 07:32] VITALS: BP 109/68
[2019-02-22] MEDS ORDERED: NEXIUM40 MG PO (07:47)
[2019-02-22] MEDS ORDERED: LOPERAMIDE 2 MG2 M1 PO (07:47)
[2019-02-22] MEDS ORDERED: FLAGYL500 M1 PO (07:47)
[2019-02-22] MEDS ORDERED: CIPRO500 MG PO (07:47)
[2019-02-22] MEDS ORDERED: NORCO 7.5-3251 EACH PO (07:47)
--- NOTE | 2019-02-22 08:42 | NUR ---
REVIEWED TRAFFIC RATE COMPUTER CHARTING AND AGREE.
--- NOTE | 2019-02-22 16:06 | PATH ---
[address] [address] PATHOLOGY RPT PROCEDURE Name: PIPPA SYKES Room: [address] IN .R.#: [id number] Admission: 02/17/19 Date of : 86 Discharge: Report #: [id number] Path Case #: [id number] LCA Accession Number: [id number] . 01 Material submitted: . small bowel - SMALL BOWEL, HISTORY OF CROHN'S . 01 Clinical history: . History of Crohn's . 02 Diagnosis: Small bowel: - Segment of benign small intestine with prominent mesenteric necrotizing granuloma with palisaded histiocytes and abscess formation and marked chronic and acute serositis with focal foreign body type granulomata associated with birefringent foreign material and serosal fibrosis and extensive adhesions. - One benign mesenteric lymph node. (See comment). . (KATE:kelin; 02/19/2019) QLM/02/19/2019 . 02 Comment: The grossly described "cystic-like structure" identified in the mesenteric fat represents a prominent abscess in association with a necrotizing granuloma showing prominent palisaded histiocytes around the rim in association with multinucleated giant cells. This necrotizing granuloma, when examined under cross polarized microscopy, shows no birefringent foreign material. A separate small serosal foreign body-type granuloma is also noted in one of the margin sections, which is associated with some birefringent foreign material; however, the smaller granuloma appear very distinctly different from that seen in the mesentery and although the mesenteric granuloma could be related to the enterocutaneous fistula/Crohn's disease, it is distinctly atypical of those seen with Crohn's disease and consideration should be given to infectious causes including mycobacteria and fungus. . Mycobacterial and fungal special stains will be performed on A7 and will be the subject of an addendum report, although special stains are not very sensitive for identifying these infectious causes. . Discussed with Dr. Delcid at approximately 13:15 on 02/19/2019. . (KATE:kelin; 02/19/2019) . 02 Addendum: . Special stain for fungus (GMS) and for acid-fast bacteria (acid-fast stain) [place] [address] PATHOLOGY RPT PROCEDURE Name: PIPPA SYKES Room: [address] IN .R.#: [id number] Admission: 02/17/19 Date of : 86 Discharge: Report #: [id number] Path Case #: [id number] (SHA:pit; 02/22/2019) . Professional services performed by [employer] at [facility], [address] [place] [address]. Technical services performed at [address] [place] [address], [address], [place] [address]. QTP/02/22/2019 Addendum Electronically Signed by Yash Son MD. Pathologist . 02 Electronically signed: . Jordan Reed MD, Pathologist NPI- [id number] . 01 Gross description: . The specimen is received in formalin, labeled "Pippa Sykes, small bowel, history of Crohn's". Received is an unoriented segment of small bowel measuring 64.5 cm in length and ranging in diameter from 2.0 to 3.0 cm. Both margins are stapled closed. The serosal surface is dusky pink-mendez in appearance with a moderate amount of overlying adhesions. The bowel is slightly adhesed onto itself in several places. The attached mesenteric fat measures up to 3.0 cm in thickness. The specimen is opened along the antimesenteric line to reveal light luna to pink-luna mucosa with normal architectural folds. The lumen of the small bowel is filled with cloudy to light green mucoid-like material. Inflammation is not grossly identified. No distinct nodules or lesions are noted grossly. Sectioning through the attached mesenteric fat reveals a cystic-like structure filled with purulent material measuring 1.0 cm. A single lymph node is identified measuring 0.5 cm. The specimen is submitted customer account representative as well as: . A1-A2 both margins A3-A4 customer account representative sections through adhesed areas A5-A6 customer account representative cross-sections of mucosa A7 entire cystic-like structure within mesenteric fat A8 bisected lymph node. (CAA; 02/18/2019) QAC/QAC . 02 Pathologist provided ICD-10: K65.8, K63.89 . 02 CPT . 256028, 387998, 977612 Specimen Comment: A courtesy copy of this report has been sent to Specimen Comment: [phone], . Specimen Comment: Report sent to / DR CARCAMO Performed at: [address], [place], [place] [id number] MD Kevin Rhoades MD Phone: [phone] [facility] [address] [facility] [place] [address] PATHOLOGY RPT PROCEDURE Name: PIPPA SYKES Room: [facility]- ADM IN M.R.#: [id number] Admission: 02/17/19 Date of : 86 Discharge: Report #: [id number] Path Case #: [id number] Performed at: 02 [facility] [address] [place], [place] [id number] MD Jordan Reed MD Phone: [phone]
[2019-02-22 16:30] VITALS: BP 126/62
--- NOTE | 2019-02-22 17:07 | NUR ---
PT A&Ox4. VITALS STABLE. NEW IV PLACED, PATENT. ILIOSTOMY PATENT. STOMA BEEF RED. PAIN CONTROLLED WITH MORPHINE AND NORCO. UP AD KADY. CALL LIGHT WITHIN REACH. WILL CONTINUE TO MONITOR.
[2019-02-22 20:57] VITALS: BP 110/75
[2019-02-23 04:42] LABS: HEMATOCRIT 36.7 % (42.0-52.0); HEMOGLOBIN 11.1 gm/dL (14.0-18.0); MCH 21.1 pg (26.0-34.0); MCHC 30.4 g/dL (28.0-37.0); MCV 69.5 fL (80.0-100.0); MPV 7.4 fl. (7.2-11.1); RBC 5.28 mil/uL (4.50-6.00); RDW-CV 20.5 % (10.5-14.5); WBC 14.5 thou/uL (4.0-11.0)
--- NOTE | 2019-02-23 06:19 | NUR ---
PATIENT RESTED COMFORTABLY THROUGH THE NIGHT. NO NEW WORSENING OF PAIN OR SYMPTOMS OF. ADMINISTERED MORPHINE 2MG AND HYDRCODONE AND TRAMADOL. HE LAST REPORTED HIS PAIN A 4/10 AT 0600. CONTINUED ABX IV AND 25 MLS NS THROUGHOUT SHIFT. PATIENT WAS ABLE TO GET GOOD SLEEP.
[2019-02-23 07:41] VITALS: BP 111/68
--- NOTE | 2019-02-23 15:41 | NUR ---
Following for d/c planning needs. Pt said he is concerned about cost of medications on d/c. Explained that Case Management would be able to assist with cost of medications for 30 day supply if needed. Will remain available to assist as needed.
[2019-02-23 16:30] VITALS: BP 108/65
--- NOTE | 2019-02-23 18:07 | NUR ---
PT A&Ox4. VITALS STABLE. IV PATENT. ILIOSTOMY OUTPUT OF 525 ML DURING SHIFT. PAIN CONTROLLED WITH MORPHINE AND NORCO. TOLERATING FOOD. DENIED NAUSEA/VOMITING. UP AD KADY. CALL LIGHT WITHIN REACH. WILL CONTINUE TO MONITOR.
[2019-02-23 21:50] VITALS: BP 113/72
[2019-02-24 04:41] LABS: CALCIUM 8.7 mg/dL (8.5-10.1); CREATININE 0.9 mg/dL (0.6-1.3); POTASSIUM 3.6 mmol/L (3.5-5.1)
--- NOTE | 2019-02-24 05:17 | NUR ---
PATIENT HAS REMAINED ALERT AND ORIENTED X 4 THROUGHOUT THE SHIFT. RESTING AT INTERVALS. PAIN MEDICATIONS PROVIDED PER ORDER. SEE E-MAR. PATIENT STATES OVERALL FEELING MUCH BETTER. STOOL FROM OSTOMY THICKER LAST 24 HOURS WITH 500 ML OUT SO FAR THIS SHIFT. SMALL SUPERFICIAL GAP BETWEEN DISTAL JENNIFER OF MIDLINE ABDOMINAL INCISION. AREA CLEANSED AND BANDAID PROVIDED PER PATIENT REQUEST. VITAL SIGNS STABLE. ADEQUATE VOIDS. NO NAUSEA. UP INDEPENDENTLY IN THE ROOM. CONTINUE TO MONITOR.
[2019-02-24 07:30] VITALS: BP 135/71
[2019-02-24] MEDS ORDERED: CIPRO500 MG PO (08:22)
[2019-02-24] MEDS ORDERED: METRONIDAZOLE500 M4 PO (08:22)
[2019-02-24 13:46] VITALS: BP 135/71
--- NOTE | 2019-02-24 15:39 | NUR ---
ASSUMED CARE OF PATIEMNT AT APPROX 0730. ALERT AND ORIENTED X4. ASSESSMENT COMPLETED AND CHARTED. VSS ON ROOM AIR. PAIN MANAGED WITH ORAL PAIN MEDICATION. TOLERATING DIET AND ORAL ANTIBIOTICS. MIDLINE ABDOMINAL INCISION CLOSED WITH JENNIFER AND SHOWS NO SIGN OF DRAINAGE OR INFECTION. PATIENT UP AD KADY AND WALKING THE UNIT TODAY. PATIENT DISCHARGED AT 1530 WITH ALL PERSONAL BELONGINGS, PRESCRIPTIONS, AND DISCHARGE INFORMATION.
== END 2019-02-24 15:30 | disposition home or self-care (01) | DRG 853 ==
LOC: M.ERS 01:40 → M.ORTHSURG 04:40 → M.TBA-ER 04:40 → M.ORTHSURG 07:01
PROVIDERS: Emergency Medicine Emergency Medical Services; Internal Medicine; Internal Medicine Infectious Disease; Surgery; ADMIT Internal Medicine
PROC: 0DB80ZZ Excision of Small Intestine, Open Approach (ICD-10-PCS; principal; 2019-02-17)
PROC: 0D9W0ZZ Drainage of Peritoneum, Open Approach (ICD-10-PCS; principal; 2019-02-17)
PROC: 0D1B0Z4 Bypass Ileum to Cutaneous, Open Approach (ICD-10-PCS; principal; 2019-02-17)
DX: A41.9 Sepsis, unspecified organism (principal); K65.1 Peritoneal abscess; K50.014 Crohn's disease of small intestine with abscess; E44.1 Mild protein-calorie malnutrition; K50.013 Crohn's disease of small intestine with fistula; K56.699 Other intestinal obstruction unspecified as to partial versus complete obstruction; K50.012 Crohn's disease of small intestine with intestinal obstruction; D63.8 Anemia in other chronic diseases classified elsewhere; G89.29 Other chronic pain; Z98.1 Arthrodesis status; Z79.899 Other long term (current) drug therapy; Z83.79 Family history of other diseases of the digestive system; Z68.23 Body mass index [BMI] 23.0-23.9, adult

== ENCOUNTER 2019-02-25 20:53 | Inpatient (IN) | payer OTHER ==
[~2019-02-25] VITALS: Ht 165.1 cm; Wt 57.1 kg
[~2019-02-25 20:53] MED LIST changes: +LOPERAMIDE 2 MG2 M1 PO; +METRONIDAZOLE500 M4 PO; +NEXIUM40 MG PO; +NORCO 7.5-3251 EACH PO
[2019-02-25 21:23] VITALS: BP 128/66
[2019-02-25 22:02] LABS: ABSOLUTE BASOPHILS 0.1 thou/uL (0.0-0.2); ABSOLUTE EOSINOPHILS 0.1 thou/uL (0.0-0.7); ABSOLUTE LYMPHOCYTES 2.7 thou/uL (0.8-5.3); ABSOLUTE MONOCYTES 0.8 thou/uL (0.0-1.2); ABSOLUTE NEUTROPHILS 14.8 thou/uL (1.6-8.1); BASOPHILS 0.5 %; EOSINOPHILS 0.5 %; HEMATOCRIT 35.7 % (42.0-52.0); LYMPHOCYTES 14.8 %; MCH 21.5 pg (26.0-34.0); MCV 69.4 fL (80.0-100.0); MONOCYTES 4.1 %; MPV 6.7 fl. (7.2-11.1); NUCLEATED RBCS 0 /100WBC; POLYS 80.1 %; RBC 5.14 mil/uL (4.50-6.00); WBC 18.5 thou/uL (4.0-11.0)
[2019-02-25 22:03] LABS: PLATELET COUNT* 473 thou/uL (150-400)
[2019-02-25 22:23] LABS: CALCIUM 8.7 mg/dL (8.5-10.1); CREATININE 1.1 mg/dL (0.6-1.3); POTASSIUM 3.5 mmol/L (3.5-5.1)
[2019-02-25 22:27] LABS: TOTAL BILIRUBIN 0.2 mg/dL (<0.1-1.0); TOTAL PROTEIN 5.6 g/dL (6.4-8.2)
[2019-02-25 22:39] LABS: OVALOCYTES 1+
[2019-02-25 22:40] LABS: MICROCYTES 3+; PLATELET ESTIMATE INCREASED
[2019-02-25 22:41] LABS: POIKILOCYTOSIS 1+; POLYCHROMASIA Occasional
[2019-02-25 22:42] LABS: ANISOCYTOSIS 2+
[2019-02-25 22:43] LABS: HYPOCHROMASIA 1+
[2019-02-25 23:28] LABS: URINE BILIRUBIN NEGATIVE (Negative); URINE BLOOD NEGATIVE (Negative); URINE CLARITY CLEAR; URINE COLOR YELLOW; URINE GLUCOSE-RANDOM NEGATIVE (Negative); URINE KETONES NEGATIVE (Negative); URINE LEUKOCYTES-REFLEX NEGATIVE (Negative); URINE NITRITE-REFLEX NEGATIVE (Negative); URINE PROTEIN NEGATIVE (Negative); URINE SPECIFIC GRAVITY <= 1.005 (1.005-1.030); URINE UROBILINOGEN 0.2 E.U./dl (0.2-1.0)
[2019-02-26 00:40] VITALS: BP 117/66
[2019-02-26 00:45] VITALS: BP 128/79
[2019-02-26] MEDS ORDERED: CIPRO500 MG PO (02:46)
[2019-02-26] MEDS ORDERED: FLAGYL500 M1 PO (02:46)
--- NOTE | 2019-02-26 06:09 | NUR ---
PT ADMITTED TO ROOM 207. REPORT RECIEVED FROM ER. PT ORIENTED TO ROOM, CALL LIGHT SHOWN, FALL AGREEMENT GONE OVER, PT STATED UNDERSTANDING. EXPLAINED TO PT ABOUT BEING NPO. PT STATING PAIN IS UNCONTROLLED AND IS ASKING FOR ADDITIONAL PAIN MEDICATIONS SINCE IT WAS TOO SOON FOR IT AT THE TIME. NOTIFIED, ORDERED RECIEVED. WENT TO GIVE PAIN MEDICATIONS TO PT AND HE HAD FILLED HIS WATER PITCHER WITH WATER STATING THAT THE DR TOLD HIM IT WAS OKAY, PT EDUCATED AGAIN ABOUT BEING NPO, MOUTH SWABS GIVEN. NO REPORTS OF NAUSEA. WILL CONTINUE WITH PLAN OF CARE.
[2019-02-26 07:30] VITALS: BP 116/79
[2019-02-26 13:07] VITALS: BP 121/69
[2019-02-26 13:48] LABS: CALCIUM 8.7 mg/dL (8.5-10.1); CREATININE 0.9 mg/dL (0.6-1.3); MAGNESIUM 1.7 mg/dL (1.8-2.4)
--- NOTE | 2019-02-26 14:20 | NUR ---
Pt is A&O. Resides at home with roommate. Recently dc from hospital, CM asked Pt if he was able to sheepskin pickler his prescriptions that Case Management vouched for, Pt stated that he was able to sheepskin pickler his scripts, but had to borrow money, because per Dev, [facility]'s did not provide the necessary form that they needed to bill the hospital for the meds. Pt is normally independent. No DME. No hx of HH or SNF. Pt plans to go and stay with his mom at [place]. CM to touch base with [facility] to determine status of CORDELL bashir. Following.
[2019-02-26 19:50] VITALS: BP 114/55
[2019-02-27] VITALS: BP 115/69
[2019-02-27 05:08] LABS: HEMATOCRIT 34.1 % (42.0-52.0); MCH 22.5 pg (26.0-34.0); MCHC 32.1 g/dL (28.0-37.0); MCV 70.1 fL (80.0-100.0); MPV 7.4 fl. (7.2-11.1); RBC 4.87 mil/uL (4.50-6.00); RDW-CV 28.5 % (10.5-14.5); WBC 12.9 thou/uL (4.0-11.0)
[2019-02-27 05:11] LABS: CALCIUM 8.7 mg/dL (8.5-10.1); CREATININE 0.7 mg/dL (0.6-1.3); MAGNESIUM 2.4 mg/dL (1.8-2.4)
[2019-02-27 05:27] LABS: POTASSIUM 4.1 mmol/L (3.5-5.1)
--- NOTE | 2019-02-27 06:17 | NUR ---
PT ALERT AND ORIENTED. VSS ON RA. ASSESSMENT COMPLETED AND DOCUMENTED. DILAUDID GIVEN MULTIPLE TIMES THIS SHIFT. RELIEVES DOES NOT GET BELOW A 5. UP AD KADY. PT EMPTIES ILLEOSTOMY HIMSELF. CALL LIGHT WITHIN REACH. HOURLY ROUNDINGS MADE. WILL CONTINUE TO MONITOR.
[2019-02-27 08:00] VITALS: BP 110/60
--- NOTE | 2019-02-27 08:14 | NUR ---
Per Megan at [facility], [facility] bashir is pending as of 02/11/19
[2019-02-27 15:23] VITALS: BP 109/64
--- NOTE | 2019-02-27 16:08 | NUR ---
SHIFT NOTE - SPOKE WITH THIS AM. STATES HE IS GOING TO KEEP PT TODAY AND POSSIBLE DC HOME TOMORROW 02/28. PT REQUESTING MULTIPLE PAIN MEDS THIS SHIFT. WILL CONTINUE TO MONITOR.
[2019-02-27 19:50] VITALS: BP 112/61
[2019-02-28] VITALS: BP 114/61
--- NOTE | 2019-02-28 05:15 | NUR ---
PT ALERT AND ORIENTED. VSS ON RA. ASSESSMENT DOCUMENTED. MEDS GIVEN PER EMAR. M/S STATUS. UP AD KADY. PT HAD SOME SLEEP. PAIN MEDS GIVEN MULTIPLE TIMES THIS SHIFT. CALL LIGHT WITHIN REACH. HOURLY ROUNDINGS MADE. ANTICIPATED DC TO HOME TODAY. WILL CONTINUE TO MONITOR.
[2019-02-28 08:00] VITALS: BP 110/64
[2019-02-28] MEDS ORDERED: NORCO 10-325 T1 EACH PO (11:44)
[2019-02-28] MEDS ORDERED: FLAGYL500 M1 PO (11:44)
[2019-02-28] MEDS ORDERED: CIPRO500 MG PO (11:44)
[2019-02-28] MEDS ORDERED: PREDNISONE 10 M10 MG PO (11:44)
[2019-02-28 12:00] VITALS: BP 119/65
[2019-02-28 12:03] VITALS: BP 110/64
--- NOTE | 2019-02-28 15:30 | NUR ---
DISCHARGE NOTE - REVIEWED INSTRUCTIONS WITH PT. NO QUESTIONS. IV REMOVED WITHOUT DIFFICULTY. ALL BELONGINGS SENT WITH PT. PT TO F/U WITH FOR ABD STAPLE REMOVAL IN < 1 WEEK.
== END 2019-02-28 15:25 | disposition home or self-care (01) | DRG 386 ==
LOC: M.ERS 20:53 → M.TBA-ER 23:56 → M.2W 23:56
PROVIDERS: Emergency Medicine Emergency Medical Services; Internal Medicine; ADMIT Internal Medicine
DX: K50.912 Crohn's disease, unspecified, with intestinal obstruction (principal); K56.699 Other intestinal obstruction unspecified as to partial versus complete obstruction; K59.00 Constipation, unspecified; Z93.2 Ileostomy status; Z98.1 Arthrodesis status; Z79.899 Other long term (current) drug therapy; Z83.79 Family history of other diseases of the digestive system

== ENCOUNTER 2019-03-04 05:27 | Inpatient (IN) | payer OTHER ==
[~2019-03-04] VITALS: Ht 165.1 cm; Wt 61.2 kg
[~2019-03-04 05:27] MED LIST changes: +NORCO 10-325 T1 EACH PO
[2019-03-04 05:33] VITALS: BP 126/96
[2019-03-04 05:48] LABS: ABSOLUTE BASOPHILS 0.1 thou/uL (0.0-0.2); ABSOLUTE EOSINOPHILS 0.1 thou/uL (0.0-0.7); ABSOLUTE LYMPHOCYTES 2.3 thou/uL (0.8-5.3); ABSOLUTE MONOCYTES 0.7 thou/uL (0.0-1.2); ABSOLUTE NEUTROPHILS 5.8 thou/uL (1.6-8.1); BASOPHILS 0.8 %; EOSINOPHILS 1.3 %; HEMATOCRIT 40.4 % (42.0-52.0); HEMOGLOBIN 12.6 gm/dL (14.0-18.0); MCH 22.1 pg (26.0-34.0); MCHC 31.1 g/dL (28.0-37.0); MCV 70.9 fL (80.0-100.0); MONOCYTES 7.4 %; MPV 7.1 fl. (7.2-11.1); NUCLEATED RBCS 0 /100WBC; PLATELET COUNT* 424 thou/uL (150-400); POLYS 64.5 %; RBC 5.71 mil/uL (4.50-6.00)
[2019-03-04 05:55] LABS: CALCIUM 9.3 mg/dL (8.5-10.1); CREATININE 1.1 mg/dL (0.6-1.3)
[2019-03-04 06:00] LABS: ALBUMIN 3.8 g/dL (3.4-5.0); TOTAL BILIRUBIN 0.4 mg/dL (<0.1-1.0); TOTAL PROTEIN 7.1 g/dL (6.4-8.2)
[2019-03-04 06:21] LABS: PLATELET ESTIMATE INCREASED
[2019-03-04 06:23] LABS: HYPOCHROMASIA 1+
[2019-03-04 06:24] LABS: ANISOCYTOSIS 1+; MICROCYTES 2+; OVALOCYTES 1+; POIKILOCYTOSIS 2+; POLYCHROMASIA Occasional; TEARDROPS 1+
[2019-03-04 09:42] VITALS: BP 154/76
[2019-03-04 10:05] VITALS: BP 102/66
[2019-03-04 15:58] VITALS: BP 109/63
[2019-03-04 18:50] LABS: URINE BILIRUBIN NEGATIVE (Negative); URINE BLOOD NEGATIVE (Negative); URINE CLARITY CLEAR; URINE COLOR YELLOW; URINE GLUCOSE-RANDOM NEGATIVE (Negative); URINE KETONES NEGATIVE (Negative); URINE LEUKOCYTES-REFLEX NEGATIVE (Negative); URINE NITRITE-REFLEX NEGATIVE (Negative); URINE PROTEIN NEGATIVE (Negative); URINE UROBILINOGEN 0.2 E.U./dl (0.2-1.0)
[2019-03-04 18:59] LABS: AMP/METHAMP POSITIVE (Negative); BARBITURATES Negative (Negative); BENZODIAZEPINES POSITIVE (Negative); COCAINE Negative (Negative); METHADONE Negative (Negative); OPIATES POSITIVE (Negative); PCP Negative (Negative); THC Negative (Negative)
[2019-03-04 20:00] VITALS: BP 109/80
[2019-03-05 04:28] LABS: ABSOLUTE EOSINOPHILS 0.1 thou/uL (0.0-0.7); ABSOLUTE MONOCYTES 0.5 thou/uL (0.0-1.2); ABSOLUTE NEUTROPHILS 7.3 thou/uL (1.6-8.1); BASOPHILS 0.2 %; HEMATOCRIT 35.7 % (42.0-52.0); LYMPHOCYTES 11.4 %; MCH 22.4 pg (26.0-34.0); MCHC 30.8 g/dL (28.0-37.0); MCV 72.7 fL (80.0-100.0); MONOCYTES 5.8 %; MPV 7.6 fl. (7.2-11.1); NUCLEATED RBCS 0 /100WBC; POLYS 81.6 %; RBC 4.92 mil/uL (4.50-6.00); RDW-CV 30.2 % (10.5-14.5)
[2019-03-05 04:40] LABS: CREATININE 0.9 mg/dL (0.6-1.3)
[2019-03-05 04:46] LABS: PLATELET COUNT* 310 thou/uL (150-400)
[2019-03-05 04:59] LABS: POTASSIUM 4.9 mmol/L (3.5-5.1)
[2019-03-05 07:03] LABS: MICROCYTES 3+
[2019-03-05 07:04] LABS: ANISOCYTOSIS 3+; TARGET CELLS 1+; TEARDROPS 1+
[2019-03-05 07:05] LABS: HYPOCHROMASIA 1+; OVALOCYTES 1+; PLATELET ESTIMATE ADEQUATE
--- NOTE | 2019-03-05 07:11 | CON ---
[address] [address] CONSULTATION Name: PIPPA HEREDIA Room: [address] IN .R.#: [id number] Admission: 03/04/19 Attend Phys: Apurva Brown MD Discharge: Date of : 86 Report #: [id number] THIS REPORT FOR: //name// CC: FAM physician/PCP Apurva Brown DATE OF SERVICE: 03/04/2019 INFECTIOUS DISEASE CONSULTATION ATTENDING PHYSICIAN: Apurva Brown MD REASON FOR EVALUATION: Abdominal pain, possible abscess. HISTORY OF PRESENT ILLNESS: The patient is a 28-year-old well known to myself, has been hospitalized several times. 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 He underwent operative debridement with partial intestinal resection on 02/17, was confirmed to have some necrotizing granuloma, although it was felt to be likely foreign body type associated with birefringent foreign material, had been on therapy with combination of Cipro and Flagyl. Overall, had been doing somewhat better. He had a hospitalization due to what appeared to be a partial obstructive process. This was relieved without correct intervention. He was readmitted with left lower quadrant pain, although he thinks the current issue is likely due to overuse of Imodium. At this point, he has ongoing mild discomfort. Imaging of the abdomen and pelvis showed right-sided ileostomy, improvement in the small bowel distension previous study, persistent possible extraluminal fluid collection in the right abdomen, decreased in the stool in the colon, apparent visualization of the appendix without evidence of appendicitis. He was restarted on Flagyl and ciprofloxacin. ALLERGIES: None known. MEDICATIONS: Include multivitamin, azathioprine, enoxaparin, metronidazole, prednisone, ciprofloxacin, pantoprazole, p.r.n. analgesics and antiemetics. PAST MEDICAL HISTORY: Notable for the Crohn's with complication of fistulous abscesses lumbar fusion, status post ileostomy. SOCIAL HISTORY: Nonsmoker, no ethanol. FAMILY HISTORY: Noncontributory. REVIEW OF SYSTEMS: As above. Denies any significant pulmonary-related complaints. Has no a recent fever or chills. Appetite has generally been good, [place] [address] CONSULTATION Name: YANPIPPA Rich Room: [address]#: [id number] Admission: 03/04/19 Attend Phys: Apurva Brown MD Discharge: Date of : 86 Report #: [id number] otherwise unremarkable 10-point review of systems. PHYSICAL EXAMINATION: GENERAL: Alert, cooperative, appropriate. He is in mild distress secondary to abdominal related pain, although some left-sided lower quadrant. VITAL SIGNS: Temperature 98.1, pulse 96, respirations 17, blood pressure 109/63. SKIN: Warm, dry, no rashes. HEENT: Normocephalic. Extraocular muscles are intact. NECK: Supple. LUNGS: Generally clear to auscultation. HEART: Regular. ABDOMEN: Soft, is tender to percussion in the left lower quadrant. Peritoneal signs. GENITOURINARY AND RECTAL: Deferred. LABORATORY DATA: Electrolytes: Sodium 140, potassium 3.0, chloride 99, bicarbonate is 32, anion gap of 9, BUN and creatinine 19 and 1.1, and glucose of 133. AST of 13, ALT of 49. Albumin 3, total protein 7.1. Lactic acid initially 2.9, repeat was 1.2. CBC: White count of 9.0, H and H of 12.6 and 40.4, platelets of 424. CT abdomen and pelvis described above. ASSESSMENT: Crohn's disease, has been complicated by fistula abscess. He is to undergo operative resection. Continue current empiric therapy. Most recent cultures are from January. At this point, he is not overtly toxic. We will repeat the QuantiFERON since it was indeterminate, previously suspected more related to the granulomas, more related to chronic inflammation. Thank you. We will follow. <ELECTRONICALLY SIGNED> By: Elver Delcid MD 03/05/19 0711 [id number] Delcid MD /nt
[2019-03-05 08:47] VITALS: BP 119/68
[2019-03-05] MEDS ORDERED: OXYCODONE HCL15 MG PO (09:44)
[2019-03-05 09:57] VITALS: BP 119/68
[2019-03-07 14:08] LABS: VITAMIN B6 (PYRIDOXAL 5-PHOS) 5.5 ug/L (5.3-46.7)
== END 2019-03-05 13:20 | disposition home or self-care (01) | DRG 386 ==
LOC: M.ERS 05:27 → M.TBA-ER 08:25 → M.ORTHSURG 08:38 → M.TBA 03-05 08:14 → M.ORTHSURG 03-05 08:18
PROVIDERS: Emergency Medicine; Internal Medicine; Personal Emergency Response Attendant; ADMIT Family Medicine
DX: K50.914 Crohn's disease, unspecified, with abscess (principal); K56.7 Ileus, unspecified; E44.0 Moderate protein-calorie malnutrition; K90.9 Intestinal malabsorption, unspecified; E87.2 Acidosis; K50.913 Crohn's disease, unspecified, with fistula; E87.6 Hypokalemia; Z60.2 Problems related to living alone; Z93.2 Ileostomy status; Z68.22 Body mass index [BMI] 22.0-22.9, adult; Z79.899 Other long term (current) drug therapy

== ENCOUNTER 2019-03-09 15:48 | Emergency (ER) | payer OTHER ==
[~2019-03-09] VITALS: Ht 165.1 cm; Wt 59.0 kg
[2019-03-09] MEDS ORDERED: XANAX1 MG PO (15:57)
[2019-03-09 16:34] LABS: HEMATOCRIT 37.6 % (42.0-52.0); HEMOGLOBIN 12.1 gm/dL (14.0-18.0); MCH 23.2 pg (26.0-34.0); MCHC 32.2 g/dL (28.0-37.0); MCV 71.9 fL (80.0-100.0); MPV 8.6 fl. (7.2-11.1); NUCLEATED RBCS 0 /100WBC; PLATELET COUNT* 278 thou/uL (150-400); RBC 5.23 mil/uL (4.50-6.00); RDW-CV 30.8 % (10.5-14.5); WBC 7.7 thou/uL (4.0-11.0)
[2019-03-09 16:41] LABS: CREATININE 0.8 mg/dL (0.6-1.3); POTASSIUM 3.2 mmol/L (3.5-5.1)
[2019-03-09 16:42] LABS: APTT 22.8 Seconds (25.0-31.3); PROTIME 10.3 Seconds (9.20-11.50)
[2019-03-09 16:45] LABS: ALBUMIN 3.7 g/dL (3.4-5.0); TOTAL BILIRUBIN 0.2 mg/dL (<0.1-1.0); TOTAL PROTEIN 6.8 g/dL (6.4-8.2)
[2019-03-09 17:03] LABS: ABSOLUTE LYMPHOCYTES 0.5 thou/uL (0.8-5.3); ABSOLUTE MONOCYTES 0.2 thou/uL (0.0-1.2); ABSOLUTE NEUTROPHILS 7.1 thou/uL (1.6-8.1); OVALOCYTES 1+
[2019-03-09 17:04] LABS: ANISOCYTOSIS 2+; HYPOCHROMASIA 1+; MACROCYTES 1+; POLYCHROMASIA 1+
[2019-03-09 17:07] LABS: PLATELET ESTIMATE ADEQUATE
[2019-03-09] MEDS ORDERED: PREDNISONE 10 M10 MG PO (18:23)
[2019-03-09 18:45] VITALS: BP 112/89
== END 2019-03-09 18:53 | disposition home or self-care (01) ==
LOC: M.ERS 15:48
PROVIDERS: Nurse Practitioner Family
DX: K50.90 Crohn's disease, unspecified, without complications (principal); K62.5 Hemorrhage of anus and rectum; R19.7 Diarrhea, unspecified

== ENCOUNTER 2019-10-10 21:39 | Inpatient (IN) | payer MEDICAID ==
[~2019-10-10] VITALS: Ht 165.1 cm; Wt 70.3 kg
[~2019-10-10 21:39] MED LIST changes: +XANAX1 MG PO
[2019-10-10 21:44] VITALS: BP 131/84
[2019-10-10 22:01] LABS: ABSOLUTE BASOPHILS 0.1 thou/uL (0.0-0.2); ABSOLUTE EOSINOPHILS 0.1 thou/uL (0.0-0.7); ABSOLUTE LYMPHOCYTES 2.2 thou/uL (0.8-5.3); ABSOLUTE MONOCYTES 0.6 thou/uL (0.0-1.2); ABSOLUTE NEUTROPHILS 6.4 thou/uL (1.6-8.1); BASOPHILS 0.6 %; EOSINOPHILS 0.6 %; HEMATOCRIT 43.5 % (42.0-52.0); HEMOGLOBIN 15.1 gm/dL (14.0-18.0); LYMPHOCYTES 23.3 %; MCH 27.9 pg (26.0-34.0); MCHC 34.7 g/dL (28.0-37.0); MCV 80.4 fL (80.0-100.0); MONOCYTES 6.7 %; MPV 8.2 fl. (7.2-11.1); NUCLEATED RBCS 0 /100WBC; PLATELET COUNT* 367 thou/uL (150-400); POLYS 68.8 %; RBC 5.41 mil/uL (4.50-6.00); RDW-CV 14.8 % (10.5-14.5); WBC 9.2 thou/uL (4.0-11.0)
[2019-10-10 22:10] LABS: CALCIUM 8.7 mg/dL (8.5-10.1); CREATININE 1.3 mg/dL (0.6-1.3); POTASSIUM 3.5 mmol/L (3.5-5.1)
[2019-10-10 22:15] LABS: ALBUMIN 4.6 g/dL (3.4-5.0); TOTAL BILIRUBIN 0.5 mg/dL (<0.1-1.0); TOTAL PROTEIN 8.5 g/dL (6.4-8.2)
[2019-10-11 02:00] VITALS: BP 104/44
[2019-10-11] MEDS ORDERED: CLONAZEPAM 0.50.5 M1 PO (02:47)
--- NOTE | 2019-10-11 05:08 | NUR ---
PATIENT IN AT 0215. RECEIVED DILAUDID 1 MG 2X IT IS Q4. UP AD KADY, PAIN CURRENTLY 02/03. NS @ 100. PATIENT RESTED WELL DURING SHIFT. PLAN TO SEE GI IN TODAY.
[2019-10-11 08:10] VITALS: BP 112/62
--- NOTE | 2019-10-11 18:21 | NUR ---
PATIENT ALERT AND ORIENTED X 4. VITAL SIGNS STABLE ON ROOM AIR. UP INDEPENDENTLY IN ROOM. IV PATENT WITH FLUIDS INFUSING. DENIES NAUSEA. PAIN BEING MANAGED WITH IV MEDICATION. HOURLY ROUNDS MAINTAINED THROUGHOUT THE SHIFT. CALL LIGHT WITHIN REACH. NURSING WILL CONTINUE TO MONITOR.
[2019-10-11 20:50] VITALS: BP 106/51
--- NOTE | 2019-10-12 07:28 | NUR ---
PATIENT HAS SLEPT WELL THROUGHOUT MOST OF THE NIGHT. VSS ON RA. MEDICATIONS GIVEN ORDERED AND CHARTED. ASSESSMENT CHARTED. PATIENT IS UP AD-KADY. PATIENT REMAINS ON CLEAR LIQUID DIET. ILEOSTOMY TO RIGHT QUADRANT INTACT WITH SMALL AMOUNT OF STOOL. IV IN RIGHT AC-NS @ 100ML/HR. PATIENT INSTRUCTED TO USE CALL LIGHT WHEN NEEDING ASSISTANCE. HOURLY ROUNDS MADE. WILL CONTINUE WITH PLAN OF CARE AND NURSING TO MONITOR.
[2019-10-12 09:32] VITALS: BP 118/85
--- NOTE | 2019-10-12 11:44 | NUR ---
cm completed assessment to discuss d/c needs. pt lives w/mom.pt mother is supportive. pt is disabled. received medicaid mo. pt denies having any dmes. denies hx w/snf or hh. pt is active, drives and independent w/adls. sw to cont to follow.
[2019-10-12] MEDS ORDERED: MESALAMINE4 GM/60 M2 RECTAL (12:40)
[2019-10-12] MEDS ORDERED: PREDNISONE 10 M10 M1 PO (12:43)
[2019-10-12] MEDS ORDERED: OXYCODONE HCL 55 MG PO (12:45)
[2019-10-12 13:30] VITALS: BP 118/85
--- NOTE | 2019-10-12 15:44 | NUR ---
ASSUMED CARE OF PATIENT AT APPROX 0730. ALERT AND ORIENTED X4. ASSESSMENT COMPLETED AND CHARTED. VSS ON ROOM AIR. PAIN MANAGED WITH IV DILAUDID. PATIENT DISCHARGED AT 1402 WITH ALL PERSONAL BELONGINGS, PRESCRIPTIONS AND DISCHARGE INFORMATION.
== END 2019-10-12 14:02 | disposition home or self-care (01) | DRG 386 ==
LOC: M.ERS 21:39 → M.ORTHSURG 10-11 00:46 → M.TBA-ER 10-11 00:46 → M.ORTHSURG 10-11 02:01
PROVIDERS: Personal Emergency Response Attendant; ADMIT Internal Medicine
DX: K50.919 Crohn's disease, unspecified, with unspecified complications (principal); R65.10 Systemic inflammatory response syndrome (SIRS) of non-infectious origin without acute organ dysfunction; Z93.2 Ileostomy status; Z79.899 Other long term (current) drug therapy

== ENCOUNTER 2019-11-03 22:18 | Inpatient (IN) | payer MEDICAID ==
[~2019-11-03] VITALS: Ht 167.6 cm; Wt 63.0 kg
[~2019-11-03 22:18] MED LIST changes: +CLONAZEPAM 0.50.5 M1 PO; +MESALAMINE4 GM/60 M2 RECTAL; +OXYCODONE HCL 55 MG PO; +PREDNISONE 10 M10 M1 PO
[2019-11-03 22:23] VITALS: BP 129/71
[2019-11-03] MEDS ORDERED: ENTYVIO300 MG IV (22:29)
[2019-11-03 22:51] LABS: HEMATOCRIT 42.1 % (42.0-52.0); HEMOGLOBIN 14.3 gm/dL (14.0-18.0); MCHC 33.9 g/dL (28.0-37.0); MCV 76.9 fL (80.0-100.0); MPV 7.1 fl. (7.2-11.1); NUCLEATED RBCS 0 /100WBC; PLATELET COUNT* 612 thou/uL (150-400); RBC 5.48 mil/uL (4.50-6.00); RDW-CV 14.3 % (10.5-14.5); WBC 13.8 thou/uL (4.0-11.0)
[2019-11-03 22:59] LABS: CALCIUM 9.2 mg/dL (8.5-10.1); CREATININE 1.1 mg/dL (0.6-1.3); POTASSIUM 3.5 mmol/L (3.5-5.1)
[2019-11-03 23:04] LABS: ALBUMIN 3.8 g/dL (3.4-5.0); MAGNESIUM 1.9 mg/dL (1.8-2.4); TOTAL BILIRUBIN 0.3 mg/dL (<0.1-1.0); TOTAL PROTEIN 8.6 g/dL (6.4-8.2)
[2019-11-03 23:36] LABS: ABSOLUTE LYMPHOCYTES 1.8 thou/uL (0.8-5.3); PLATELET ESTIMATE INCREASED; TOXIC GRANULATION 1+
[2019-11-03 23:37] LABS: ANISOCYTOSIS Occasional
[2019-11-03 23:56] LABS: ESR (SEDRATE) 41 mm/hr (0-15)
[2019-11-04 00:49] LABS: URINE BILIRUBIN NEGATIVE (Negative); URINE BLOOD NEGATIVE (Negative); URINE CLARITY CLEAR; URINE COLOR YELLOW; URINE GLUCOSE-RANDOM NEGATIVE (Negative); URINE KETONES NEGATIVE (Negative); URINE LEUKOCYTES-REFLEX NEGATIVE (Negative); URINE NITRITE-REFLEX NEGATIVE (Negative); URINE PROTEIN NEGATIVE (Negative); URINE UROBILINOGEN 0.2 E.U./dl (0.2-1.0)
[2019-11-04 00:58] LABS: AMP/METHAMP Negative (Negative); BARBITURATES Negative (Negative); BENZODIAZEPINES Negative (Negative); COCAINE Negative (Negative); METHADONE Negative (Negative); OPIATES POSITIVE (Negative); PCP Negative (Negative); THC Negative (Negative)
[2019-11-04 02:40] VITALS: BP 133/81
[2019-11-04 03:00] VITALS: BP 126/69
[2019-11-04 08:30] VITALS: BP 89/52
[2019-11-04 12:00] VITALS: BP 105/59
[2019-11-04 17:03] VITALS: BP 107/53
[2019-11-04 19:50] VITALS: BP 103/59
[2019-11-05 00:01] VITALS: BP 111/51
[2019-11-05 04:30] LABS: ABSOLUTE EOSINOPHILS 0.1 thou/uL (0.0-0.7); ABSOLUTE LYMPHOCYTES 2.7 thou/uL (0.8-5.3); ABSOLUTE MONOCYTES 0.7 thou/uL (0.0-1.2); ABSOLUTE NEUTROPHILS 6.1 thou/uL (1.6-8.1); BASOPHILS 0.4 %; EOSINOPHILS 1.5 %; HEMATOCRIT 35.3 % (42.0-52.0); LYMPHOCYTES 27.7 %; MCH 26.3 pg (26.0-34.0); MCV 77.3 fL (80.0-100.0); MONOCYTES 6.9 %; MPV 7.6 fl. (7.2-11.1); NUCLEATED RBCS 0 /100WBC; POLYS 63.5 %; RBC 4.56 mil/uL (4.50-6.00); RDW-CV 13.9 % (10.5-14.5); WBC 9.6 thou/uL (4.0-11.0)
[2019-11-05 04:46] LABS: PLATELET COUNT* 430 thou/uL (150-400)
[2019-11-05 05:12] LABS: CALCIUM 8.7 mg/dL (8.5-10.1); CREATININE 0.9 mg/dL (0.6-1.3); POTASSIUM 4.5 mmol/L (3.5-5.1); TOTAL BILIRUBIN 0.2 mg/dL (<0.1-1.0); TOTAL PROTEIN 6.1 g/dL (6.4-8.2)
[2019-11-05 07:50] VITALS: BP 120/79
[2019-11-05 20:40] VITALS: BP 113/63
[2019-11-06 05:00] VITALS: BP 116/64
[2019-11-06 08:07] VITALS: BP 114/65
[2019-11-06 10:46] LABS: ABSOLUTE EOSINOPHILS 0.2 thou/uL (0.0-0.7); ABSOLUTE LYMPHOCYTES 1.6 thou/uL (0.8-5.3); ABSOLUTE MONOCYTES 0.4 thou/uL (0.0-1.2); ABSOLUTE NEUTROPHILS 6.3 thou/uL (1.6-8.1); BASOPHILS 0.5 %; EOSINOPHILS 1.8 %; HEMATOCRIT 34.6 % (42.0-52.0); HEMOGLOBIN 11.8 gm/dL (14.0-18.0); LYMPHOCYTES 18.4 %; MCH 26.3 pg (26.0-34.0); MCHC 34.1 g/dL (28.0-37.0); MCV 77.1 fL (80.0-100.0); MPV 7.6 fl. (7.2-11.1); NUCLEATED RBCS 0 /100WBC; PLATELET COUNT* 440 thou/uL (150-400); POLYS 74.3 %; RBC 4.48 mil/uL (4.50-6.00); WBC 8.5 thou/uL (4.0-11.0)
[2019-11-06 11:12] LABS: CALCIUM 7.9 mg/dL (8.5-10.1); CREATININE 1.1 mg/dL (0.6-1.3); TOTAL BILIRUBIN 0.2 mg/dL (<0.1-1.0); TOTAL PROTEIN 6.4 g/dL (6.4-8.2)
[2019-11-06 11:14] LABS: POTASSIUM 2.8 mmol/L (3.5-5.1)
[2019-11-06 12:36] LABS: CALCIUM 8.1 mg/dL (8.5-10.1); CREATININE 1.1 mg/dL (0.6-1.3); MAGNESIUM 1.9 mg/dL (1.8-2.4)
[2019-11-06 12:50] LABS: POTASSIUM 2.9 mmol/L (3.5-5.1)
[2019-11-06 16:06] VITALS: BP 106/61
[2019-11-06 20:15] VITALS: BP 108/57
[2019-11-07 06:24] LABS: ABSOLUTE EOSINOPHILS 0.1 thou/uL (0.0-0.7); ABSOLUTE MONOCYTES 0.4 thou/uL (0.0-1.2); ABSOLUTE NEUTROPHILS 3.7 thou/uL (1.6-8.1); BASOPHILS 0.6 %; EOSINOPHILS 2.2 %; HEMATOCRIT 35.7 % (42.0-52.0); HEMOGLOBIN 12.1 gm/dL (14.0-18.0); LYMPHOCYTES 18.2 %; MCH 26.4 pg (26.0-34.0); MCHC 33.9 g/dL (28.0-37.0); MCV 77.8 fL (80.0-100.0); MONOCYTES 8.6 %; MPV 7.3 fl. (7.2-11.1); NUCLEATED RBCS 0 /100WBC; PLATELET COUNT* 376 thou/uL (150-400); POLYS 70.4 %; RBC 4.58 mil/uL (4.50-6.00); WBC 5.2 thou/uL (4.0-11.0)
[2019-11-07 06:38] LABS: ALBUMIN 2.9 g/dL (3.4-5.0); CALCIUM 8.2 mg/dL (8.5-10.1); POTASSIUM 3.7 mmol/L (3.5-5.1); TOTAL BILIRUBIN 0.2 mg/dL (<0.1-1.0); TOTAL PROTEIN 6.1 g/dL (6.4-8.2)
[2019-11-07] MEDS ORDERED: PHENERGAN 25 MG25 M1 PO (08:02)
[2019-11-07] MEDS ORDERED: FLAGYL500 M1 PO (08:02)
[2019-11-07] MEDS ORDERED: LEVAQUIN 500 M500 M2 PO (08:02)
[2019-11-07] MEDS ORDERED: OXYCODONE HCL 55 MG PO (08:02)
[2019-11-07 08:05] VITALS: BP 107/58
[2019-11-07 09:37] VITALS: BP 107/58
[2020-02-01] MEDS ORDERED: BUPRENORPHINE HC8 MG SUBLING (12:22)
[2020-02-01] MEDS ORDERED: BUPRENORPHINE HC2 MG SUBLING (12:24)
== END 2019-11-07 10:24 | disposition home or self-care (01) | DRG 872 ==
LOC: M.ERS 22:18 → M.TBA-ER 11-04 00:52 → M.2W 11-04 00:52
PROVIDERS: Emergency Medicine; Internal Medicine; ADMIT Family Medicine; ATTEND Family Medicine
DX: A41.9 Sepsis, unspecified organism (principal); K50.913 Crohn's disease, unspecified, with fistula; L02.211 Cutaneous abscess of abdominal wall; K50.914 Crohn's disease, unspecified, with abscess; K52.9 Noninfective gastroenteritis and colitis, unspecified; F17.220 Nicotine dependence, chewing tobacco, uncomplicated; Z93.2 Ileostomy status; Z98.1 Arthrodesis status; Z79.899 Other long term (current) drug therapy; Z82.49 Family history of ischemic heart disease and other diseases of the circulatory system; Z90.49 Acquired absence of other specified parts of digestive tract; Z79.891 Long term (current) use of opiate analgesic; Z79.2 Long term (current) use of antibiotics

== ENCOUNTER 2020-02-04 05:25 | Inpatient (IN) | payer MEDICAID ==
[~2020-02-04] VITALS: Ht 167.6 cm; Wt 74.8 kg
[~2020-02-04 05:25] MED LIST changes: +BUPRENORPHINE HC2 MG SUBLING; +BUPRENORPHINE HC8 MG SUBLING; +ENTYVIO300 MG IV; +LEVAQUIN 500 M500 M2 PO; +PHENERGAN 25 MG25 M1 PO
[2020-02-04 11:47] LABS: MCH 23.9 pg (26.0-34.0); MCHC 32.5 g/dL (28.0-37.0); MCV 73.4 fL (80.0-100.0); RBC 5.04 mil/uL (4.50-6.00); RDW-CV 18.9 % (10.5-14.5); WBC 9.6 thou/uL (4.0-11.0)
[2020-02-04 11:55] LABS: CALCIUM 7.9 mg/dL (8.5-10.1); CREATININE 1.1 mg/dL (0.6-1.3); POTASSIUM 3.1 mmol/L (3.5-5.1)
[2020-02-04] MEDS ORDERED: ONE-A-DAY MEN'1 EAC2 PO (12:16)
--- NOTE | 2020-02-04 17:55 | NUR ---
PATIENT ARRIVED TO UNIT AT 1730, ALERT AND ORIENTED X4. ASSESSMENT COMPLETED AND CHARTED. VSS ON 2 LITERS 02. SURGICAL DRESSING MIDLINE ABD IS INTACT WITH PINK DRAINAGE NOTED AND MARKED. SMALL DRESSING TO RLQ IS LUIS ALFREDO, DRY AND INTACT. COMPLAINT OF PAIN, GIVEN PAIN MEDICATIONS IN PACU PRIOR TO TRANSFER, AWAITING NEW ORDERS ON EMAR AT THIS TIME. CALL LIGHT PLACED IN REACH. FAMILY AT BEDSIDE. WILL CONTINUE WITH PLAN OF CARE.
[2020-02-04 18:18] VITALS: BP 150/80
[2020-02-04 20:00] VITALS: BP 130/71
[2020-02-05] VITALS: BP 136/67
[2020-02-05 04:00] VITALS: BP 130/71
--- NOTE | 2020-02-05 04:09 | NUR ---
PT A&O X 4, VSS ON 2L BY NC, CONTINUOUS PULSE OX MONITOR. MIDLINE INCISION/DRESSING AND SMALL DRESSING TO RLQ CLEAN AND INTACT WITH SMALL AMOUNT OF SEROUS DRAINAGE. PAIN MANAGED WITH DILAUDID Q2H. ATIVAN GIVEN ONCE PER PT REQUEST. ARTEAGA IN PLACE. NPO. IVF RUNNING ORDERED. WILL CONTINUE TO MONITOR.
[2020-02-05 07:50] VITALS: BP 114/62
[2020-02-05 10:56] LABS: ALBUMIN 2.8 g/dL (3.4-5.0); CALCIUM 7.9 mg/dL (8.5-10.1); CREATININE 1.1 mg/dL (0.6-1.3); MAGNESIUM 1.6 mg/dL (1.8-2.4); PHOSPHORUS* 2.8 mg/dL (2.5-4.9); POTASSIUM 3.9 mmol/L (3.5-5.1)
[2020-02-05 12:15] VITALS: BP 131/61
--- NOTE | 2020-02-05 18:17 | NUR ---
Pt AOx4. Pt c/o severe pain and receiving suboxone and prn norco to manage. Pt has midline incision with surgical drsg CDI. Catheter removed and voiding per urinal. Pt is encouraged to use IS for low grade temp. No other complaints this shift. hourly rounding complete, will continue to monitor
[2020-02-05 20:00] VITALS: BP 126/71
[2020-02-06 03:59] LABS: HEMOGLOBIN 12.4 gm/dL (14.0-18.0); MCH 23.6 pg (26.0-34.0); MCHC 31.8 g/dL (28.0-37.0); MCV 74.2 fL (80.0-100.0); MPV 8.8 fl. (7.2-11.1); RBC 5.26 mil/uL (4.50-6.00); RDW-CV 18.4 % (10.5-14.5); WBC 14.4 thou/uL (4.0-11.0)
[2020-02-06 04:21] LABS: CALCIUM 8.5 mg/dL (8.5-10.1); MAGNESIUM 2.2 mg/dL (1.8-2.4); PHOSPHORUS* 2.1 mg/dL (2.5-4.9); POTASSIUM 4.3 mmol/L (3.5-5.1)
--- NOTE | 2020-02-06 05:35 | NUR ---
PT A&O, VSS ON RA. MG REPLACED. TOLERATING CLEAR LIQUIDS. NO N/V. DRESSINGS C/D/I. PT USES URINAL TO VOID. PAIN PARTIALLY MANAGED WITH SCHEDULED SUBOXONE AND NORCO, BUT PT STILL RATES HIS PAIN 7/10 THIS MORNING, ASKING FOR MORE PAIN MEDS. WILL CONTINUE TO MONITOR.
[2020-02-06 07:35] VITALS: BP 121/74
[2020-02-06 11:30] VITALS: BP 118/62
[2020-02-06 15:41] VITALS: BP 132/67
--- NOTE | 2020-02-06 18:18 | NUR ---
Pt AOx4. Pt c/o pain and abd cramps this shift. Pt encouraged to ambulate and states he is unable to get up because of the pain. Pt receiving IVF and Iron infusion today and tolerated well. VSS. Hourly rounding complete. Midline incision ENGINEERING AND DEVELOPMENT DIRECTOR, annmarie intact. Will continue to monitor
[2020-02-06 20:00] VITALS: BP 125/74
[2020-02-07 04:51] LABS: HEMATOCRIT 39.2 % (42.0-52.0); HEMOGLOBIN 12.7 gm/dL (14.0-18.0); MCH 23.8 pg (26.0-34.0); MCHC 32.5 g/dL (28.0-37.0); MCV 73.3 fL (80.0-100.0); MPV 8.8 fl. (7.2-11.1); RBC 5.35 mil/uL (4.50-6.00); RDW-CV 18.2 % (10.5-14.5); WBC 9.3 thou/uL (4.0-11.0)
--- NOTE | 2020-02-07 05:01 | NUR ---
PT A&O X4, PAIN MANAGED WITH NORCO Q4H. MIDLINE INCISION C/D/I. DRESSING RLQ INTACT WITH SMALL AMOUNT OF DRAINAGE. C/O NAUSEA, ZOFRAN GIVEN. IVF INFUSING ORDERED. PT RESTING QUIETLY. NO BM YET, PASSING GAS. WILL CONTINUE TO MONITOR.
[2020-02-07 05:05] LABS: ALBUMIN 2.7 g/dL (3.4-5.0); CALCIUM 8.4 mg/dL (8.5-10.1); PHOSPHORUS* 2.3 mg/dL (2.5-4.9); POTASSIUM 3.6 mmol/L (3.5-5.1)
[2020-02-07 08:20] VITALS: BP 131/76
[2020-02-07 16:00] VITALS: BP 125/63
--- NOTE | 2020-02-07 18:23 | NUR ---
Pt AOx4. Pt continues to c/o severe abdominal pain, IV pain meds given for breakthrough pain. Pt midline incision is well approximated, THIAGO with annmarie intact. Receiving IVF and tolerating well. Pt refuses to get out of bed to ambulate because of severe pain. Small BM today, advanced to full liquid diet and tolerating well. Will continue to monitor
[2020-02-07 22:20] VITALS: BP 118/70
[2020-02-08 07:15] VITALS: BP 117/70
--- NOTE | 2020-02-08 08:45 | NUR ---
PATIENT HAS SLEPT OFF AND ON DURING THE NIGHT. VSS ON RA. PATIENT STILL C/O PAIN AND PAIN MEDICATIONS GIVEN ORDERED. MIDLINE INCISION THIAGO AND IS WELL APPROXIMATED AND NO DRAINAGE NOTED. PATIENT TOLERATING A FULL LIQUID DIET. IV IN RIGHT AC-NS W/20K @ 110ML/HR. PATIENT INSTRUCTED TO USE CALL LIGHT WHEN NEEDING ASSISTANCE. HOURLY ROUNDS MADE. WILL CONTINUE WITH PLAN OF CARE AND NURSING TO MONITOR.
[2020-02-08 15:50] VITALS: BP 112/64
--- NOTE | 2020-02-08 17:15 | NUR ---
PT REMAINED ALERT AND ORIENTED. PT C/O PAIN, MEDS GIVEN ORDERED. PT RESTING IN BED. FALL RISK PRECAUTIONS IN PLACE. HOURLY ROUNDING COMPLETED. PT DID NOT WALK AROUND, PT REFUSED. WILL CONTINUE TO MONITOR.
[2020-02-08 20:30] VITALS: BP 127/72
--- NOTE | 2020-02-09 07:27 | NUR ---
PATIENT HAS SLEPT OFF AND ON DURING THE NIGHT. VSS ON RA. PATIENT STILL HAS C/O OF PAIN IN ABDOMINAL AREA AND REQUESTING ORAL AND IV PAIN MEDICATIONS FREQUENTLY. MEDICATIONS GIVEN ORDERED AND CHARTED. ASSESSMENT CHARTED. MIDLINE INCISION IS WELL APPROXIMATED AND NO DRAINAGE NOTED. IV IN RIGHT FOREARM-SL. PATIENT INSTRUCTED TO USE CALL LIGHT WHEN NEEDING ASSISTANCE. HOURLY ROUNDS MADE. WILL CONTINUE WITH PLAN OF CARE AND NURSING TO MONITOR.
[2020-02-09 07:40] VITALS: BP 123/70
[2020-02-09 09:55] VITALS: BP 123/70
--- NOTE | 2020-02-09 13:08 | PATH ---
[address] [address] PATHOLOGY RPT PROCEDURE Name: SYKESPIPPA Room: [address] IN M.R.#: [id number] Admission: 02/04/20 Date of : 86 Discharge: Report #: [id number] Path Case #: [id number] LCA Accession Number: [id number] . 01 Material submitted: . PART A: ileum - TERMINAL ILEUM AND CECUM PART B: abdomen - ILEOSTOMY . 01 Clinical history: . Crohn's disease . 02 Diagnosis: A. Terminal ileum and cecum: - Segment of benign terminal ileum, appendix and cecum with evidence of active Crohn's disease including chronic and active ileitis, colitis and appendicitis, ileal luminal stricturing with transmural inflammation and abscess formation, acute and chronic serositis and serosal adhesions. See comment. . B. Ileostomy: - Benign ileostomy including skin and small intestinal tissue, with evidence of prior surgery including fibrosis and foreign body type granulomatous response, without evidence of active Crohn's disease. (KATE:frederick; 02/08/2020) . S 02/09/2020 0943 Local . 02 Comment: After trimming away the staple line from the distal margin (A2), the remaining colon shows chronic and active inflammation with focal ulceration typical of Crohn's colitis. There is no dysplasia seen in any of the specimen. (KATE:frederick; 02/08/2020) . 02 Addendum: . Additional Gross Description: . B. After initial microscopic examination, additional territory sales representative sections are submitted in B3. (SDY; 02/08/2020) MBR/02/09/2020 Addendum Electronically Signed by Jordan Reed MD, Pathologist . 02 Electronically signed: . Jordan Reed MD, Pathologist NPI- [id number] . 01 Gross description: [place] [address] PATHOLOGY RPT PROCEDURE Name: PIPPA SYKES Room: [address]#: [id number] Admission: 02/04/20 Date of : 86 Discharge: Report #: [id number] Path Case #: [id number]. The specimen is received in formalin, labeled "Pippa Sykes, terminal ileum and cecum" and consists of a segment of terminal ileum (17.0 cm in length and up to 2.1 cm in diameter) attached to a small segment of cecum measuring 5.0 x 3.8 x 2.5 cm. Both margins have a staple line. The serosa is luna-brown with extensive adhesions and mesocolic tissue up to 3.0 cm. There is a small possible appendix measuring 1.2 cm in length and 0.4 cm in diameter. Opening the terminal ileum reveals stricture toward the distal aspect which coincides to granular roughened mucosa spanning 5.0 cm. The proximal mucosa is luna and grossly unremarkable. The cecum is mendez-luna with no gross lesions. Brassiere Cup Mold Cutter sections are submitted as follows: . A1: Proximal margin A2: Distal margin A3: Possible appendix A4: 5 cm A5: 10 cm A6: 15 cm (site of stricture) A7: Cecum . B. The specimen is received in formalin, labeled "Pippa Sykes" and "ileostomy" per requisition. Received is an ileostomy specimen with skin measuring 3.2 x 2.0 cm displaying bulging mucosa with attached at the intestinal tissue measuring 2.3 cm in length and 2.5 cm in diameter which is closed with a linear staple line. Sectioning reveals no gross lesions and a full-thickness bisected territory sales representative and is submitted in B1-B2. (SDY; 02/07/2020) SYU/SYU 02/08/2020 1448 Local . 02 Pathologist provided ICD-10: K50.90, K52.9, K36, K63.0, K65.8 . 02 CPT . 014645, [id number] Specimen Comment: A courtesy copy of this report has been sent to [phone] Specimen Comment: [id number] Specimen Comment: Report sent to / DR CARCAMO Performed at: 01 [facility] [address] [facility] [address], [place], [place] [id number] MD Kevin Rhoades MD Phone: [phone] Performed at: [address] [address] [address], [place], [place] [id number] MD Jordan Reed MD Phone: [phone]
[2020-02-09 16:00] VITALS: BP 121/62
--- NOTE | 2020-02-09 17:12 | NUR ---
PT REMAINED ALERT AND ORIENTED. PT RESTING IN BED. PT C/O PAIN, MEDS GIVEN ORDERED. FALL RISK PRECAUTIONS IN PLACE. HOURLY ROUNDING COMPLETED. WILL CONTINUE TO MONITOR.
--- NOTE | 2020-02-09 17:27 | NUR ---
PT.HOPES TO DISCHARGE TOMORROW. IS STILL HAVING PAIN CONTROL ISSUES. HE IS TOLERATING A REGULAR DIET. HE SAID HE LIVES WITH HIS MOM. HE IS NORMALLY INDEPENDENT. SHOULDN'T HAVE ANY DISCHARGE. NEEDS.
[2020-02-09 19:35] VITALS: BP 119/69
--- NOTE | 2020-02-10 04:58 | NUR ---
PATIENT HAS REMAINED ALERT AND ORIENTED X 4 THROUGHOUT THE SHIFT AND RESTING QUIETLY ON HOURLY ROUNDS. PAIN MEDICATION PROVIDED PER ORDERS X 4 OF THIS WRITING, BOTH PO AND IV. ABDOMINAL MIDLINE INCISION DARRELL WITH JENNIFER INTACT. RIGHT OLD OSTOMY SITE WITH SMALL AMOUNT SEROUS DRAINAGE. PATIENT CHANGED DRESSING X 1. VITAL SIGNS STABLE. FELT HE ATE SOMETHING THAT CAUSED INCREASE IN INTESTINAL DISTRESS, ASKING FOR CHICKEN NOODLE SOUP AROUND 0100. THIS WAS WELL TOLERATED. CONTINUE TO MONITOR.
[2020-02-10 07:55] VITALS: BP 135/62
--- NOTE | 2020-02-10 13:14 | OP ---
[facility] [address] [place] [address] OPERATIVE REPORT Name: HEREDIAPIPPA Room: [address] IN .R.#: [id number] Admission: 02/04/20 Attend Phys: Ned Pulido Discharge: Date of : 86 Report #: [id number] THIS REPORT FOR: //name// cc: SEPIDEH Ren family physician/PCP SEPIDEH Ren family physician/PCP ~ THIS REPORT FOR: //name// CC: SEPIDEH physician/PCP Milan Mandujano DATE OF SERVICE: 02/04/2020 PREOPERATIVE DIAGNOSES: Past history of small bowel perforation, Crohn's disease, with ileostomy. POSTOPERATIVE DIAGNOSES: Past history of small bowel perforation, Crohn's disease, with ileostomy. OPERATION: 1. Takedown of ileostomy. 2. Ileocecectomy with ileocolostomy. 3. Takedown of enteroenteric fistula. SURGEON: Milan Santiago MD ANESTHESIA: General. ESTIMATED BLOOD LOSS: 50 mL. SPECIMENS: 1. Ileostomy. 2. Terminal ileum and cecum. DESCRIPTION OF PROCEDURE: After informed consent was obtained, the patient was brought to the operating room and placed supine. SCDs were placed and working, preoperative antibiotics were administered, general anesthesia was induced. The abdomen was then prepped and draped in the usual sterile fashion after Rebollar catheter was placed. The ileostomy was closed with a running 3-0 silk suture. An occlusive dressing was placed over the ileostomy. Laparotomy incision was made over the previous incision site. Cautery dissection was made down through the subcutaneous tissue to the fascia. Fascia was incised. [address] [address] OPERATIVE REPORT Name: PIPPA HEREDIA Room: [address] IN .R.#: [id number] Admission: 02/04/20 Attend Phys: Ned Pulido Discharge: Date of : 86 Report #: [id number] A self-retaining retractor was placed. Exploration was undertaken. I ran the small bowel from the ligament of Treitz down to the ileostomy. It all appeared normal. I then examined the right lower quadrant. I could visualize the cecum. The white line of Toldt was incised. The cecum was mobilized medially. I was then able to isolate the terminal ileum and I found the stump of small bowel. The LigaSure was used to ligate the mesentery from this small bowel stump. During this dissection, I could tell that there was a piece of the stump fistulized to the proximal small bowel. This was taken down sharply with Metzenbaum scissors. I then closed a small hole with two interrupted 3-0 silk sutures in Lembert fashion. The cecum was then isolated after being medialized. The cecum, taking about a 3 cm, was then stapled off. Specimen was then sent off. The ileum was then stapled off at its base at the level of the fascia at the ileostomy site. These 2 ends were then brought into apposition [id number]. The cecum and small-bowel were stapled [id number] with a NASIR-80 stapler. The common enterocolostomy was then stapled off with a NASIR blue load stapler as well. The anastomosis was widely patent. The abdomen was then copiously irrigated. I identified the right ureter and it was completely safe. The fascia was then reapproximated with a #1 PDS. The ileostomy site was then closed with #1 PDS in running fashion as well. The skin was then closed with annmarie. Sterile dressings were applied. COMPLICATIONS: None. DISPOSITION: The patient was taken to recovery in satisfactory condition. <ELECTRONICALLY SIGNED> By: Milan Santiago MD 02/10/20 1314 [id number] [id number] Santiago MD /nt
[2020-02-10 16:05] VITALS: BP 106/58
--- NOTE | 2020-02-10 17:59 | NUR ---
PATIENT RESTING IN BED. PATIENT IS UP AD KADY IN ROOM. PATIENT HAS HAD BOWEL MOVEMENT THIS AM. PATIENT IS TOLERATING DIET, EATING ABOUT 50-75% OF MEALS. PATIENT HAS COMPLAINTS OF ABDOMINAL PAIN WITH PARTIAL RELIEF PROVIDED WITH HYDROCODONE. PATIENT DENIES ANY NEEDS AT THIS TIME. CALL LIGHT WITHIN REACH.
[2020-02-10 20:00] VITALS: BP 110/69
--- NOTE | 2020-02-11 06:27 | NUR ---
Alert and oriented x 4. He has midline incision,approximated by annmarie and open to air. Ostomy site is THIAGO and approximated. He has had 2 hydrocodone for pain every 4 hours and it has worked well. He has slept intermittenly.
[2020-02-11 08:00] VITALS: BP 131/63
[2020-02-11 10:40] VITALS: BP 123/70
[2020-02-11] MEDS ORDERED: NORCO 5-325 TA1 EAC2 PO (10:49)
--- NOTE | 2020-02-11 17:50 | NUR ---
PATIENT DISCHARGED TO HOME. DISCHARGE PAPERS REVIEWED AND SIGNED. PRESCRIPTIONS AND INFORMATION SHEETS GIVEN. IV REMOVED. PATIENT DENIES ANY FURTHER NEEDS. PATIENT TAKEN BY WHEELCHAIR TO EXIT. LEFT WITH MOTHER.
== END 2020-02-11 17:50 | disposition home or self-care (01) | DRG 330 ==
LOC: M.PRE 05:25 → M.TBA 11:23 → M.PRE 12:16 → M.ORTHSURG 17:30
PROVIDERS: Anesthesiology; Family Medicine; ADMIT Internal Medicine; ATTEND Internal Medicine
PROC: 0D1B0ZH Bypass Ileum to Cecum, Open Approach (ICD-10-PCS; principal; 2020-02-04)
PROC: 0DBB0ZZ Excision of Ileum, Open Approach (ICD-10-PCS; principal; 2020-02-04)
PROC: 0DBH0ZZ Excision of Cecum, Open Approach (ICD-10-PCS; principal; 2020-02-04)
DX: K50.90 Crohn's disease, unspecified, without complications (principal); E44.0 Moderate protein-calorie malnutrition; D50.9 Iron deficiency anemia, unspecified; D72.0 Genetic anomalies of leukocytes; E83.39 Other disorders of phosphorus metabolism; Z79.891 Long term (current) use of opiate analgesic; Z68.26 Body mass index [BMI] 26.0-26.9, adult

== ENCOUNTER 2020-03-19 20:33 | Inpatient (IN) | payer MEDICAID ==
[~2020-03-19] VITALS: Ht 167.6 cm; Wt 75.3 kg
[~2020-03-19 20:33] MED LIST changes: +NORCO 5-325 TA1 EAC2 PO; +ONE-A-DAY MEN'1 EAC2 PO
[2020-03-19 20:41] VITALS: BP 109/53
[2020-03-19] MEDS ORDERED: CLONAZEPAM 0.50.5 M1 PO (20:47)
[2020-03-19] MEDS ORDERED: ADDERALL 10 MG10 MG PO (20:48)
[2020-03-19 21:00] LABS: URINE BLOOD NEGATIVE (Negative); URINE CLARITY CLEAR; URINE COLOR YELLOW; URINE GLUCOSE-RANDOM NEGATIVE (Negative); URINE KETONES 2+ (Negative); URINE LEUKOCYTES-REFLEX NEGATIVE (Negative); URINE NITRITE-REFLEX NEGATIVE (Negative); URINE PROTEIN 1+ (Negative); URINE SPECIFIC GRAVITY 1.025 (1.005-1.030); URINE UROBILINOGEN 0.2 E.U./dl (0.2-1.0)
[2020-03-19 21:06] LABS: URINE BILIRUBIN 1+ (Negative)
[2020-03-19 21:09] LABS: ICTOTEST (BILI CONFIRMATORY) Negative (Negative)
[2020-03-19 21:25] LABS: HEMATOCRIT 31.2 % (42.0-52.0); HEMOGLOBIN 10.1 gm/dL (14.0-18.0); MCH 23.3 pg (26.0-34.0); MCHC 32.5 g/dL (28.0-37.0); MCV 71.9 fL (80.0-100.0); MPV 7.8 fl. (7.2-11.1); NUCLEATED RBCS 0 /100WBC; PLATELET COUNT* 502 thou/uL (150-400); RBC 4.34 mil/uL (4.50-6.00); RDW-CV 21.1 % (10.5-14.5); WBC 15.2 thou/uL (4.0-11.0)
[2020-03-19 21:28] LABS: CALCIUM 8.4 mg/dL (8.5-10.1); CREATININE 1.4 mg/dL (0.6-1.3)
[2020-03-19 21:30] LABS: POTASSIUM 2.9 mmol/L (3.5-5.1)
[2020-03-19 21:32] LABS: ALBUMIN 2.6 g/dL (3.4-5.0); TOTAL BILIRUBIN 0.4 mg/dL (<0.1-1.0); TOTAL PROTEIN 6.7 g/dL (6.4-8.2)
[2020-03-19 22:11] LABS: AMP/METHAMP POSITIVE (Negative); BARBITURATES Negative (Negative); BENZODIAZEPINES POSITIVE (Negative); COCAINE Negative (Negative); METHADONE Negative (Negative); OPIATES Negative (Negative); PCP Negative (Negative); THC Negative (Negative)
[2020-03-19 22:12] LABS: ABSOLUTE EOSINOPHILS 0.3 thou/uL (0.0-0.7); ABSOLUTE LYMPHOCYTES 1.2 thou/uL (0.8-5.3); ABSOLUTE MONOCYTES 0.6 thou/uL (0.0-1.2); ABSOLUTE NEUTROPHILS 13.1 thou/uL (1.6-8.1)
[2020-03-19 22:14] LABS: ANISOCYTOSIS 2+; PLATELET ESTIMATE INCREASED
[2020-03-19 22:15] LABS: HYPOCHROMASIA 1+; MICROCYTES 2+
[2020-03-19 22:16] LABS: OVALOCYTES Occasional
[2020-03-20] VITALS (92 sets, daily range): BP systolic 79–124; BP diastolic 28–66
--- NOTE | 2020-03-20 09:34 | EKG ---
[place] [address] ELECTROCARDIOGRAM REPORT Name: HEREDIA,PIPPA Villanueva Room: [address] ADM IN [facility].#: [id number] Admission: 03/19/20 Attend Phys: Manuel Mandujano Discharge: Date of : 86 Date of Service: 03/19/202150 Report #: [id number] THIS REPORT FOR: //name// [facility] ED Test Date: 2020-03-19 Test Time: 21:51:42 Pat Name: PIPPA HEREDIA Department: Room: [facility] Gender: M Electrical Manager: MARK : 1990 Requested By: Roxana Esteves Order Number: [id number] MD: Rashaun Romero Measurements Intervals [place] Rate: 110 P: 0 KS: 139 QRS: -29 QRSD: 73 T: -31 QT: 296 QTc: 401 Interpretive Statements Sinus tachycardia Borderline left axis deviation Low voltage, extremity leads RSR' in V1 or V2, probably normal variant Nonspecific T abnormalities, anterior leads Lead(s) II were not used for morphology analysis No previous ECG available for comparison Electronically Signed On 03-20-2020 9:34:03 CDT by Rashaun Romero [email or web address] <ELECTRONICALLY SIGNED> By: Rashaun Romero MD, FACC 03/20/20 0934 50 50 Rashaun Romero MD, [facility] /EPI
--- NOTE | 2020-03-20 10:03 | EKG ---
[place] [address] ELECTROCARDIOGRAM REPORT Name: HEREDIA,PIPPA Villanueva Room: [address] ADM IN ..#: [id number] Admission: 03/19/20 Attend Phys: Manuel Mandujano Discharge: Date of : 86 Date of Service: 03/19/202152 Report #: [id number] THIS REPORT FOR: //name// [facility] ED Test Date: 2020-03-19 Test Time: 21:53:23 Pat Name: PIPPA HEREDIA Department: Room: [address] Gender: M Physical Therapist: MARK : 1990 Requested By: Roxana Esteves Order Number: [id number] Elke MD: Rashaun Romero Measurements Intervals [place] Rate: 110 P: -8 AR: 120 QRS: 32 QRSD: 84 T: 2 QT: 303 QTc: 410 Interpretive Statements Sinus tachycardia Borderline T abnormalities, diffuse leads Compared to ECG 03/19/2020 21:51:42 No significant changes Electronically Signed On 03-20-2020 10:03:24 CDT by Rashaun Romero [email or web address] <ELECTRONICALLY SIGNED> By: Rashaun Romero MD, [facility] 03/20/20 1003 52 52 Rashaun Romero MD, [facility] /EPI
[2020-03-20 12:22] LABS: ABSOLUTE EOSINOPHILS 0.1 thou/uL (0.0-0.7); ABSOLUTE LYMPHOCYTES 1.1 thou/uL (0.8-5.3); ABSOLUTE NEUTROPHILS 15.5 thou/uL (1.6-8.1); BASOPHILS 0.1 %; EOSINOPHILS 0.8 %; LYMPHOCYTES 6.1 %; MCH 23.3 pg (26.0-34.0); MCHC 32.1 g/dL (28.0-37.0); MCV 72.5 fL (80.0-100.0); MONOCYTES 5.4 %; MPV 7.4 fl. (7.2-11.1); NUCLEATED RBCS 0 /100WBC; PLATELET COUNT* 533 thou/uL (150-400); POLYS 87.6 %; RBC 3.87 mil/uL (4.50-6.00); RDW-CV 21.8 % (10.5-14.5); WBC 17.7 thou/uL (4.0-11.0)
[2020-03-20 12:32] LABS: APTT 43.3 Seconds (25.0-31.3)
[2020-03-20 12:33] LABS: MAGNESIUM 1.5 mg/dL (1.8-2.4); PHOSPHORUS* 1.8 mg/dL (2.5-4.9)
[2020-03-20 14:23] LABS: URINE BILIRUBIN NEGATIVE (Negative); URINE BLOOD NEGATIVE (Negative); URINE CLARITY CLEAR; URINE COLOR YELLOW; URINE GLUCOSE-RANDOM NEGATIVE (Negative); URINE KETONES TRACE (Negative); URINE LEUKOCYTES-REFLEX NEGATIVE (Negative); URINE NITRITE-REFLEX NEGATIVE (Negative); URINE PROTEIN NEGATIVE (Negative); URINE UROBILINOGEN 0.2 E.U./dl (0.2-1.0)
[2020-03-21] VITALS (31 sets, daily range): BP systolic 79–124; BP diastolic 34–61
[2020-03-21 05:20] LABS: HEMATOCRIT 26.2 % (42.0-52.0); HEMOGLOBIN 8.5 gm/dL (14.0-18.0); MCH 23.3 pg (26.0-34.0); MCHC 32.2 g/dL (28.0-37.0); MCV 72.2 fL (80.0-100.0); MPV 7.3 fl. (7.2-11.1); RBC 3.63 mil/uL (4.50-6.00); RDW-CV 21.4 % (10.5-14.5); WBC 13.1 thou/uL (4.0-11.0)
[2020-03-21 05:32] LABS: ALBUMIN 1.6 g/dL (3.4-5.0); CALCIUM 7.2 mg/dL (8.5-10.1); CREATININE 1.1 mg/dL (0.6-1.3); MAGNESIUM 1.5 mg/dL (1.8-2.4); TOTAL BILIRUBIN 0.2 mg/dL (<0.1-1.0); TOTAL PROTEIN 5.1 g/dL (6.4-8.2)
[2020-03-21 11:44] LABS: ABSOLUTE EOSINOPHILS 0.2 thou/uL (0.0-0.7); ABSOLUTE LYMPHOCYTES 1.2 thou/uL (0.8-5.3); ABSOLUTE MONOCYTES 0.6 thou/uL (0.0-1.2); ABSOLUTE NEUTROPHILS 7.7 thou/uL (1.6-8.1); BASOPHILS 0.4 %; EOSINOPHILS 2.4 %; HEMATOCRIT 24.6 % (42.0-52.0); HEMOGLOBIN 8.2 gm/dL (14.0-18.0); MCHC 33.2 g/dL (28.0-37.0); MCV 72.4 fL (80.0-100.0); NUCLEATED RBCS 0 /100WBC; PLATELET COUNT* 461 thou/uL (150-400); POLYS 79.2 %; RDW-CV 21.9 % (10.5-14.5); WBC 9.8 thou/uL (4.0-11.0)
[2020-03-22] VITALS: BP 113/69
[2020-03-22 04:00] VITALS: BP 104/50
[2020-03-22 05:36] LABS: HEMOGLOBIN 9.3 gm/dL (14.0-18.0); MCH 23.8 pg (26.0-34.0); MCHC 33.2 g/dL (28.0-37.0); MCV 71.8 fL (80.0-100.0); MPV 7.2 fl. (7.2-11.1); RBC 3.89 mil/uL (4.50-6.00); RDW-CV 21.6 % (10.5-14.5); WBC 10.2 thou/uL (4.0-11.0)
[2020-03-22 05:51] LABS: ALBUMIN 1.9 g/dL (3.4-5.0); CALCIUM 7.8 mg/dL (8.5-10.1); MAGNESIUM 1.6 mg/dL (1.8-2.4); POTASSIUM 3.3 mmol/L (3.5-5.1); TOTAL BILIRUBIN 0.2 mg/dL (<0.1-1.0); TOTAL PROTEIN 5.6 g/dL (6.4-8.2)
[2020-03-22 12:00] VITALS: BP 105/60
[2020-03-22 16:00] VITALS: BP 101/53
[2020-03-22 20:00] VITALS: BP 113/60
[2020-03-23] VITALS: BP 109/59
[2020-03-23 04:04] VITALS: BP 103/46
[2020-03-23 05:43] LABS: HEMATOCRIT 27.5 % (42.0-52.0); HEMOGLOBIN 9.1 gm/dL (14.0-18.0); MCH 23.9 pg (26.0-34.0); MCV 72.3 fL (80.0-100.0); MPV 6.9 fl. (7.2-11.1); RBC 3.8 mil/uL (4.50-6.00); RDW-CV 21.7 % (10.5-14.5)
[2020-03-23 05:53] LABS: CREATININE 1.1 mg/dL (0.6-1.3); POTASSIUM 3.4 mmol/L (3.5-5.1)
[2020-03-23 08:00] VITALS: BP 103/59
[2020-03-23 14:04] VITALS: BP 105/69
[2020-03-23 17:17] VITALS: BP 90/46
[2020-03-23 20:00] VITALS: BP 110/67
[2020-03-24] VITALS: BP 106/58
[2020-03-24 07:30] VITALS: BP 96/54
[2020-03-24] MEDS ORDERED: COLACE100 MG PO (10:14)
[2020-03-24] MEDS ORDERED: AMOX TR-K CLV1 EAC4 PO (10:14)
[2020-03-24 16:50] VITALS: BP 96/54
== END 2020-03-24 20:35 | disposition home or self-care (01) | DRG 853 ==
LOC: M.ERS 20:33 → M.TBA-ER 23:14 → M.ICU 23:14 → M.2W 03-21 20:24
PROVIDERS: Emergency Medicine; ADMIT Family Medicine; ATTEND Family Medicine
PROC: 02HV33Z Insertion of Infusion Device into Superior Vena Cava, Percutaneous Approach (ICD-10-PCS; principal; 2020-03-20)
PROC: 0W9F0ZZ Drainage of Abdominal Wall, Open Approach (ICD-10-PCS; principal; 2020-03-20)
DX: A41.9 Sepsis, unspecified organism (principal); K65.1 Peritoneal abscess; R65.21 Severe sepsis with septic shock; K50.90 Crohn's disease, unspecified, without complications; F41.9 Anxiety disorder, unspecified; F98.8 Other specified behavioral and emotional disorders with onset usually occurring in childhood and adolescence; E87.6 Hypokalemia; K59.00 Constipation, unspecified; Z20.828 Contact with and (suspected) exposure to other viral communicable diseases; Z93.2 Ileostomy status; Z79.899 Other long term (current) drug therapy

== ENCOUNTER 2020-08-07 06:22 | Emergency (ER) | payer MEDICAID ==
[~2020-08-07] VITALS: Ht 167.6 cm; Wt 74.8 kg
[~2020-08-07 06:22] MED LIST changes: +ADDERALL 10 MG10 MG PO; +AMOX TR-K CLV1 EAC4 PO; +COLACE100 MG PO
[2020-08-07 06:33] VITALS: BP 115/58
[2020-08-07 08:32] LABS: CALCIUM 7.7 mg/dL (8.5-10.1); POTASSIUM 3.1 mmol/L (3.5-5.1)
[2020-08-07 08:36] LABS: ABSOLUTE LYMPHOCYTES 1.3 thou/uL (0.8-5.3); ABSOLUTE MONOCYTES 0.9 thou/uL (0.0-1.2); ABSOLUTE NEUTROPHILS 9.8 thou/uL (1.6-8.1); BASOPHILS 0.3 %; EOSINOPHILS 0.3 %; HEMATOCRIT 28.6 % (42.0-52.0); HEMOGLOBIN 8.7 gm/dL (14.0-18.0); LYMPHOCYTES 10.8 %; MCH 19.8 pg (26.0-34.0); MCHC 30.4 g/dL (28.0-37.0); MONOCYTES 7.6 %; MPV 7.7 fl. (7.2-11.1); NUCLEATED RBCS 0 /100WBC; PLATELET COUNT* 439 thou/uL (150-400); RDW-CV 19.3 % (10.5-14.5); WBC 12.1 thou/uL (4.0-11.0)
[2020-08-07 08:37] LABS: ALBUMIN 2.6 g/dL (3.4-5.0); TOTAL BILIRUBIN 0.2 mg/dL (<0.1-1.0); TOTAL PROTEIN 6.6 g/dL (6.4-8.2)
--- NOTE | 2020-08-07 09:43 | NUR ---
pt back from radiology.
[2020-08-07 10:00] LABS: ANISOCYTOSIS 2+; POLYCHROMASIA 1+
[2020-08-07 10:01] LABS: TARGET CELLS Occasional
[2020-08-07] MEDS ORDERED: HYDROCODON-ACE1 EAC7 PO ×3 (10:28→12:33)
[2020-08-07] MEDS ORDERED: ZOFRAN ODT4 MG SUBLING ×3 (10:28→12:33)
[2020-08-07 11:09] LABS: URINE BILIRUBIN NEGATIVE (Negative); URINE BLOOD NEGATIVE (Negative); URINE CLARITY CLEAR; URINE COLOR YELLOW; URINE GLUCOSE-RANDOM NEGATIVE (Negative); URINE KETONES NEGATIVE (Negative); URINE LEUKOCYTES-REFLEX NEGATIVE (Negative); URINE NITRITE-REFLEX NEGATIVE (Negative); URINE PROTEIN NEGATIVE (Negative); URINE UROBILINOGEN 0.2 E.U./dl (0.2-1.0)
[2020-08-07] MEDS ORDERED: PREDNISONE 20 M20 M1 PO ×2 (12:32→12:33)
[2020-08-07 12:58] VITALS: BP 105/49
== END 2020-08-07 13:00 | disposition home or self-care (01) ==
LOC: M.ERS 06:22 → M.TBA-ER 11:57 → M.ERS 11:57
PROVIDERS: Family Medicine
DX: R10.31 Right lower quadrant pain (principal); R10.32 Left lower quadrant pain; Z79.899 Other long term (current) drug therapy